=== PATIENT | female | born 1940 | race Caucasian/White ===

== ENCOUNTER 2016-07-23 19:16 | Inpatient (IN) | payer OTHER, MEDICARE ==
[~2016-07-23] VITALS: Ht 165.1 cm; Wt 79.0 kg
--- NOTE | 2016-07-23 19:30 | NUR ---
BIBA FROM HOME C/O LEFT FLANK/LOWER ABD PAIN, N/V AND DIARRHEA SINCE ABOUT NOON. SYMPTOMS STARTED AFTER EATING LUNCH. DRY HEAVING ON ARRIVAL BUT NO VOMITING, ALERT AND ORIENTED, NO SOB, NO CHEST PAIN.REMOTE HX DIVERTICULITIS, ALSO HAS HX KIDNEY STONES. REPORTS URINARY HESITANCY YESTERDAY BUT NO SYMPTOMS TODAY.
--- NOTE | 2016-07-23 19:34 | ED GI/GU/ABDOMINAL COMPLAINT ---
History of Present Illness General Chief Complaint: Abdominal Pain/Flank Pain Stated Complaint: BIBA ABD PAIN Source: patient, family, old records, EMS Exam Limitations: no limitations Vital Signs & Intake/Output Vital Signs & Intake/Output Vital Signs Date Time Temp Pulse Resp B/P B/P Pulse O2 O2 Flow FiO2 Mean Ox Delivery Rate 07/23 2245 97.4 58 18 155/70 07/235 97.4 58 18 155/70 97 Room Air 07/230 95 07/23 2128 96.4 60 20 147/65 95 Room Air 07/23 1927 97.3 67 18 182/90 97 Room Air Allergies Coded Allergies: cephalexin (From KEFLEX) (UNKNOWN 07/24/16) codeine (UNKNOWN 07/24/16) latex (UNKNOWN 07/24/16) Triage Note: BIBA FROM HOME C/O LEFT FLANK/LOWER ABD PAIN, N/V AND DIARRHEA SINCE ABOUT NOON. SYMPTOMS STARTED AFTER EATING LUNCH. DRY HEAVING ON ARRIVAL BUT NO VOMITING, ALERT AND ORIENTED, NO SOB, NO CHEST PAIN.REMOTE HX DIVERTICULITIS, ALSO HAS HX KIDNEY STONES. REPORTS URINARY HESITANCY YESTERDAY BUT NO SYMPTOMS TODAY. Triage Nurses Notes Reviewed? yes ? Y Is pt currently ? No Onset: Abrupt Duration: hour(s): (5), constant Timing: recent history Quality/Severity: moderate, sharpness Severity Numbers: 8 Location: left flank Radiation: LLQ, LUQ Activities at Onset: none Prior Abdominal Problems: none No Modifying Factors: none Associated Symptoms: diarrhea, nausea/vomiting HPI: 76-year-old female with history of kidney stones diverticulitis, arrhythmia presents complaining sudden onset 5 hours of constant left flank pain radiating to the left upper and lower quadrant. Associated with multiple episodes of nausea vomiting and diarrhea. Patient denies black or bloody stools or hematemesis. No fever no chills no urinary complaints, until arrival here when she had an episode of hematuria She is not taken anything for her symptoms no chest pain or shortness of breath. Her only abdominal surgery significant for hysterectomy no sick contacts recent travel no modifying factors or associated symptoms otherwise. (CARMEN STEPHENS,MARILYNN) Reconcile Medications Ciprofloxacin HCl (Cipro) 500 MG TABLET 1 TAB PO BID Pyelonephritis Cyanocobalamin (Vitamin B-12) (Unknown Strength) TABLET (Unknown Dose) PO DAILY SUPPLEMENT (Reported) Diltiazem HCl (Diltiazem 24HR ER) 180 MG CAP.ER.24H 1 CAP PO DAILY ARRYTHMIA (Reported) Oxycodone HCl/Acetaminophen (Percocet 5-325 MG Tablet) 5 MG-325 MG TABLET 1-2 TAB PO Q8P PRN pain Pyridoxine HCl (Vitamin B-6) (Unknown Strength) TABLET (Unknown Dose) PO DAILY SUPPLEMENT (Reported) Vit C/Vit E/Lutein/Min/Downing-3 (Ocuvite Softgel) (Unknown Strength) CAPSULE ( Unknown Dose) PO DAILY SUPPLEMENT (Reported) (MARTHA WU,KARY Davila) Past History Travel History Traveled to [place] past 21 day No Medical History Any Pertinent Medical History? see below for history Cardiovascular: ARRHYTHMIA Gastrointestinal: diverticulitis Renal: KIDNEY STONES Surgical History Surgical History: hysterectomy Psychosocial History What is your primary language Swedish Tobacco Use: Never used Family History Hx Contributory? No (MARILYNN PORRAS) Review of Systems Review of Systems Constitutional: Reports: see HPI. All Other Systems: Reviewed and Negative Comments Review of systems: See HPI, All other systems negative. Constitutional, no chills no fever, no malaise HEENT: no sore throat no congestion, no ear pain Cardiovascular: No chest pain , no palpitation , Skin: no rashes, no change in skin Respiratory: No dyspnea no cough no sputum no hemoptysis GI: nausea vomiting, diarrhea, no bloating/constipation : No dysuria No hematuria, no frequency Muscle skeletal: No joint pain, no back pain, no neck pain, Neurologic: No numbness no headache Psych: No stress no depression,. Heme/endocrine: No bruising no bleeding Immunology: No lymphadenopathy (MARILYNN PORRAS) Physical Exam Physical Exam General Appearance: well developed/nourished, no apparent distress, alert, awake Gastrointestinal: soft, tenderness Back: CVA tenderness (L) Comments: Well-developed well-nourished person in no acute distress HEENT: Normal EENT exam; PERRL, EOMI, no nystagmus. HEAD is atraumatic. moist mucous membranes. Neck: Supple, , normal range of motion without pain or tenderness Back: Nontender, left CVA tenderness. Full range of motion Cardiovascular: Regular rate and rhythms no murmurs rubs Respiratory: Chest nontender.There were no bony deformities, no asymmetry. No respiratory distress. Patient speaking in full complete sentences. Breath sounds clear to auscultation bilaterally: NO W/R/R Abdomen: Soft, left upper left lower quadrant tenderness to palpation nondistended, no appreciable organomegaly. Normal bowel sounds. No rebound/ guarding, No appreciable enlargement of the abdominal aorta, No ascites. Extremity: No edema, full range of motion of extremities Neuro: Alert oriented x3, motor sensory normal,There were no obvious focal neurologic abnormalities. Skin: No appreciable rash on exposed skin, skin is warm and dry. Psych: Mood and affect is normal, memory and judgment is normal. Core Measures ACS in differential dx? No Severe Sepsis Present: No Septic Shock Present: No (CARMEN STEPHENS,MARILYNN) Progress Differential Diagnosis: bowel obstruction, colon cancer, diverticulitis, hepatitis, ischemic bowel, inflamm bowel dis, kidney stone, pancreatitis, perforated viscous, SBO, UTI/pyelo Diagnostic Imaging: Viewed by Me: CT Scan. Discussed w/RAD: CT Scan. Radiology Impression: PATIENT: WALDO IRVIN PRESENT AGE: 76 PATIENT ACCOUNT NO: [id number] : 41 LOCATION: [facility] ORDERING PHYSICIAN: MARILYNN STEPHENS SERVICE DATE: 07/23/16 EXAM TYPE: CAT - CT ABD & PELVIS W/O IV CONTRAS EXAMINATION: CT ABDOMEN AND PELVIS WITHOUT CONTRAST CLINICAL INFORMATION: Left flank pain radiating to the left abdomen. COMPARISON: None available. TECHNIQUE: Multidetector volumetric imaging was performed from the superior aspect of the liver through the pubic symphysis. Sagittal and coronal reformatted images were obtained on the technologist's workstation. FINDINGS: There is amorphus high density retroperitoneal hematoma on the left side that is centered just anterior to the left ureteropelvic junction and proximal left ureter which are inseparable from hematoma. The left renal collecting system does appear mildly dilated. There are no radiopaque calculi along the course of the ureters. There is a 4 mm calculus within the lateral interpolar left kidney. There are parapelvic cysts on the right side. There is left perinephric stranding. Mild scarring versus atelectasis at the medial right lung base. Diffuse hepatic steatosis. Limited evaluation of the unenhanced spleen, adrenal glands, gallbladder, and pancreas reveals no definite abnormality. The large and small bowel are normal in caliber without evidence of mechanical obstruction. No focal inflammatory changes adjacent to the large or the small bowel. Sigmoid diverticulosis without evidence of acute diverticulitis. There is no free air and there is no intra-abdominal free fluid. No mesenteric or retroperitoneal adenopathy. Uterus is surgically absent. No pelvic adenopathy. There are no acute osseous abnormalities. Grade 1 degenerative anterolisthesis of L4 on L5 in the setting of severe facet arthropathy at this level. No significant soft tissue abnormality. IMPRESSION: - There is retroperitoneal hematoma on the left side that is centered just anterior to the left ureteropelvic junction and proximal left ureter which are inseparable from hematoma. In speaking with the referring clinician, the patient does have an elevated white count and left flank pain. Possible etiology for these blood products could be ureteral injury or calyceal rupture in the setting of prior obstruction with no radiopaque calculus identified as the source of obstruction on this exam. Alternatively ureteral or calyceal injury from underlying pyelonephritis could explain these findings. If renal function tests allow, a CT urogram excluding the noncontrast portion and CTA of the abdomen would be helpful in assessing the renal collecting system more definitively and for ensuring that there is no renal artery aneurysm to explain these findings. - There is mild dilatation of the left renal collecting system and there is a 4 mm calculus within the lateral interpolar left kidney. There are parapelvic cysts on the right side. - Diffuse hepatic steatosis. Findings discussed with Dr. Barnard at 8:39 PM on 07/23/2016. DICTATED BY: ERIN REHMAN MD DATE/TIME DICTATED:07/23/162026 SORTING COWS WORKER:JUDITH DATE/TIME TRANSCRIBED:2026 CONFIDENTIAL, DO NOT COPY WITHOUT APPROPRIATE AUTHORIZATION. < Electronically signed in Other Vendor System> SIGNED BY: ERIN REHMAN MD 07/23/162047 Initial ED EKG: VENTRICULAR QUADRIGEMINY AT 80, NO ACUTE ST SEG CHANGES, NORMAL AXIS Prior EKG: changed (04/2001) Hand-Off Endorsed To: MARTHA WU,KARY Davila Endorsed Time: 810 Pending: other (accepting physician) (MARILYNN PORRAS) Plan of Care: Orders Procedure Date/time Status KIDNEY STONE ANALYSIS Ref$ 07/28 1513 Active Labs ordered patient making a Toradol 15 IV IV fluids Zofran IV case discussed with Dr. Wiseman 07/23/2016 8:44:16 PM discussed with the patient plan of care need for CAT scan with contrast and discussed with her all of her lab results she is feeling improved denies any pain or nausea at this time. Resting comfortably, patient is hemodynamically stable 07/23/2016 9:59:40 PM patient denies pain pending CAT scan 07/23/2016 10:22:01 PM case discussed with Dr. Thompson advised to Flomax antibiotics admit to medicine she will consult in the morning however does not feel the patient requires any type of urology surgical intervention at this time Discussed with patient plan of care. case d/w dr martinez and dr schmidt- signed out to him pending accepting physician (MARILYNN PORRSA) Departure Departure Time of Disposition: 2256 Disposition: STILL A PATIENT Condition: Stable Clinical Impression Primary Impression: Retroperitoneal hematoma Secondary Impressions: Kidney stone, Left ureteral injury, Pyelonephritis Referrals: SHAHLA PERLA,SHENA Gallego (PCP/Family) Departure Forms: Customer Survey General Discharge Information Prescriptions: Current Visit Scripts Ciprofloxacin HCl (Cipro) 1 TAB PO BID 10 Days Admission Note Documentation of Exam: Documentation of any treatments & extenuating circumstances including Concerns Regarding Discharge (functional status, medication knowledge or non-compliance, living conditions, etc.) that warrant an admission rather than observation: TREND LABS, IV FLUIDS, IV ABX, FLOMAX, UROLOGY CONSULT PREMATURE DISCHARGE WOULD BE MEDICALLY HARMFUL (MARILYNN PORRAS) Admission Note Spoke With: SINA MARTINEZ MD Documentation of Exam: Documentation of any treatments & extenuating circumstances including Concerns Regarding Discharge (functional status, medication knowledge or non-compliance, living conditions, etc.) that warrant an admission rather than observation: PA/ONION TOPPER Co-Sign Statement Statement: ED Attending supervision documentation- [X] I saw and evaluated the patient. I have also reviewed all the pertinent lab results and diagnostic results. I agree with the findings and the plan of care as documented in the PA's/ONION TOPPER's documentation. [X] I have reviewed the ED Record and agree with the PA's/ONION TOPPER's documentation. [] Additions or exceptions (if any) to the PAs/ONION TOPPER's note and plan are summarized below: [] (MARTHA WU,KARY Davila) PA/ONION TOPPER Co-Sign Statement Statement: ED Attending supervision documentation- [] I saw and evaluated the patient. I have also reviewed all the pertinent lab results and diagnostic results. I agree with the findings and the plan of care as documented in the PA's/ONION TOPPER's documentation. [] I have reviewed the ED Record and agree with the PA's/ONION TOPPER's documentation. [] Additions or exceptions (if any) to the PAs/ONION TOPPER's note and plan are summarized below: [] (LUCY WU,JOHN PAUL) Primary Impression: Retroperitoneal hematoma Secondary Impressions: Kidney stone, Left ureteral injury, Pyelonephritis Referrals: [facility],SHENA Gallego (PCP/Family) Departure Forms: Customer Survey General Discharge Information Admission Note Documentation of Exam: Documentation of any treatments & extenuating circumstances including Concerns Regarding Discharge (functional status, medication knowledge or non-compliance, living conditions, etc.) that warrant an admission rather than observation: TREND LABS, IV FLUIDS, IV ABX, FLOMAX, UROLOGY CONSULT PREMATURE DISCHARGE WOULD BE MEDICALLY HARMFUL (MARILYNN PORRAS) Admission Note Spoke With: SINA MARTINEZ MD Documentation of Exam: Documentation of any treatments & extenuating circumstances including Concerns Regarding Discharge (functional status, medication knowledge or non-compliance, living conditions, etc.) that warrant an admission rather than observation: PA/ONION TOPPER Co-Sign Statement Statement: ED Attending supervision documentation- [X] I saw and evaluated the patient. I have also reviewed all the pertinent lab results and diagnostic results. I agree with the findings and the plan of care as documented in the PA's/ONION TOPPER's documentation. [X] I have reviewed the ED Record and agree with the PA's/ONION TOPPER's documentation. [] Additions or exceptions (if any) to the PAs/ONION TOPPER's note and plan are summarized below: [] (MARTHA WU,KARY Davila) PA/ONION TOPPER Co-Sign Statement Statement: ED Attending supervision documentation- [] I saw and evaluated the patient. I have also reviewed all the pertinent lab results and diagnostic results. I agree with the findings and the plan of care as documented in the PA's/ONION TOPPER's documentation. [] I have reviewed the ED Record and agree with the PA's/ONION TOPPER's documentation. [] Additions or exceptions (if any) to the PAs/ONION TOPPER's note and plan are summarized below: [] (LUCY WU,JOHN PAUL)
--- NOTE | 2016-07-23 19:54 | NUR ---
PT SEEN BY PA NICHELLE ON ARRIVAL AND BY ANGELO MORALES. IV PLACED AND PT MEDICATED PER MAY. PT AMBULATORY TO BATHROOM, RETURNED WITH URINE SAMPLE WHICH WAS FRANKLY BLOODY. URINE TRIO AND BLOOD (SST/LAV/BLUE/RAMIRES/PINK) SENT AND PT TO CT AT THIS TIME.
[2016-07-23] MEDS ORDERED: DILTIAZEM 24HR180 MG PO (19:55)
[2016-07-23 20:13] LABS: ABSOLUTE BASOPHIL COUNT 0 /CUMM (0.0-0.2); ABSOLUTE EOSINOPHIL COUNT 0 /CUMM (0.0-0.7); ABSOLUTE GRANULOCYTE CT 17.6 /CUMM (1.4-6.5); ABSOLUTE LYMPH COUNT 1.4 /CUMM (1.2-3.4); ABSOLUTE MONOCYTE COUNT 0.9 /CUMM (0.10-0.60); BASOPHIL % 0.2 % (0.0-2.0); EOSINOPHIL % 0 % (0-5); HEMATOCRIT 44.1 % (37-47); MEAN CORPUSCULAR HGB 30.7 PG (27.0-31.0); MEAN CORPUSCULAR HGB CONC 33.3 G/DL (33.0-37.0); MEAN CORPUSCULAR VOLUME 92.2 FL (81.0-99.0); MEAN PLATELET VOLUME 10.9 FL (7.4-10.4); PLATELET COUNT 269 /CUMM (130-400); RBC DISTRIBUTION WIDTH 13.5 % (11.5-14.5); RED BLOOD CELL CT 4.78 /CUMM (4.20-5.40)
[2016-07-23 20:14] LABS: GRANULOCYTE % 87.9 % (42.2-75.2)
--- NOTE | 2016-07-23 20:48 | CT SCAN REPORT ---
EXAMINATION: CT ABDOMEN AND PELVIS WITHOUT CONTRAST CLINICAL INFORMATION: Left flank pain radiating to the left abdomen. COMPARISON: None available. TECHNIQUE: Multidetector volumetric imaging was performed from the superior aspect of the liver through the pubic symphysis. Sagittal and coronal reformatted images were obtained on the technologist's workstation. FINDINGS: There is amorphus high density retroperitoneal hematoma on the left side that is centered just anterior to the left ureteropelvic junction and proximal left ureter which are inseparable from hematoma. The left renal collecting system does appear mildly dilated. There are no radiopaque calculi along the course of the ureters. There is a 4 mm calculus within the lateral interpolar left kidney. There are parapelvic cysts on the right side. There is left perinephric stranding. Mild scarring versus atelectasis at the medial right lung base. Diffuse hepatic steatosis. Limited evaluation of the unenhanced spleen, adrenal glands, gallbladder, and pancreas reveals no definite abnormality. The large and small bowel are normal in caliber without evidence of mechanical obstruction. No focal inflammatory changes adjacent to the large or the small bowel. Sigmoid diverticulosis without evidence of acute diverticulitis. There is no free air and there is no intra-abdominal free fluid. No mesenteric or retroperitoneal adenopathy. Uterus is surgically absent. No pelvic adenopathy. There are no acute osseous abnormalities. Grade 1 degenerative anterolisthesis of L4 on L5 in the setting of severe facet arthropathy at this level. No significant soft tissue abnormality. IMPRESSION: - There is retroperitoneal hematoma on the left side that is centered just anterior to the left ureteropelvic junction and proximal left ureter which are inseparable from hematoma. In speaking with the referring clinician, the patient does have an elevated white count and left flank pain. Possible etiology for these blood products could be ureteral injury or calyceal rupture in the setting of prior obstruction with no radiopaque calculus identified as the source of obstruction on this exam. Alternatively ureteral or calyceal injury from underlying pyelonephritis could explain these findings. If renal function tests allow, a CT urogram excluding the noncontrast portion and CTA of the abdomen would be helpful in assessing the renal collecting system more definitively and for ensuring that there is no renal artery aneurysm to explain these findings. - There is mild dilatation of the left renal collecting system and there is a 4 mm calculus within the lateral interpolar left kidney. There are parapelvic cysts on the right side. - Diffuse hepatic steatosis. Findings discussed with Dr. Barnard at 8:39 PM on 07/23/2016.
--- NOTE | 2016-07-23 21:09 | NUR ---
PT TO AND FROM CT TWICE. FEELING BETTER AFTER MEDS, THEN C/O WAVE OF PAIN WHEN RETURNING FROM CT. AMBULATED TO BATHROOM AND FELT SOMEWHAT BETTER UPON RETURN. AWAITING RESULTS OF CTA
--- NOTE | 2016-07-23 21:29 | NUR ---
PAIN HAS RESOLVED, PT SITTING ON STRETCHER TALKING WITH FRIEND. AWAITING RESULTS OF CTA.
[2016-07-23] MEDS ORDERED: VITAMIN B-650 M2 PO (21:30)
[2016-07-23] MEDS ORDERED: OCUVITE SOFTGE1 EACH PO (21:30)
[2016-07-23] MEDS ORDERED: VITAMIN B-121000 MC3 PO (21:30)
--- NOTE | 2016-07-23 22:11 | CT SCAN REPORT ---
EXAMINATION: CT ANGIOGRAM ABDOMEN AND PELVIS CLINICAL INFORMATION: Abdominal pain. Small volume retroperitoneal hematoma. COMPARISON: CT abdomen and pelvis without contrast 07/23/2016. TECHNIQUE: Multiple axial images were obtained through the abdomen and pelvis following the administration of 95 mL of Optiray 350 intravenous contrast. 2-D coronal and sagittal reformatted images of the abdomen and pelvis were obtained at the acquisition workstation. DLP: 677 mGy-cm FINDINGS: LUNG BASES: Bibasilar subsegmental atelectasis. No pleural or pericardial effusions. No visible basilar pulmonary emboli. LIVER, GALLBLADDER, AND BILIARY TREE: Evaluation of the hepatobiliary tree demonstrates diffuse low-attenuation of the liver parenchyma, indicative of diffuse hepatic steatosis. The liver is otherwise normal in size and shape and is visualized measuring approximately 16 cm in length. No hypervascular hepatic lesions are identified. There is no intrahepatic biliary ductal dilatation. The gallbladder is contracted, without evidence of radiopaque gallstones, gallbladder wall thickening, or obvious pericholecystic inflammatory changes. PANCREAS: Unremarkable. SPLEEN: Unremarkable. ADRENAL GLANDS: Unremarkable. KIDNEYS AND URETERS: Evaluation of the bilateral kidneys and renal collecting systems is again notable for a small volume of retroperitoneal hematoma within the left renal fossa, with blood products visualized along the course of the proximal left ureter. Retroperitoneal hematoma within this region is likely secondary to underlying ureteral injury from a passed 4 mm stone, which is visualized at the left ureterovesicular junction. There is hypoenhancement of the left kidney relative to the right kidney. Also noted is mild prominence of the left renal collecting system, which may reflect mild hydronephrosis of the left kidney. Redemonstrated is a 4 mm nonobstructing stone within the mid to lower pole of the left kidney. A minimal amount of perinephric fluid is visualized surrounding the left kidney. The right kidney appears unremarkable. There are multiple right-sided parapelvic cysts. There is no appreciable hydronephrosis of the right kidney. BLADDER: As noted above, there is a 4 mm passed stone at the left ureterovesicular junction. GASTROINTESTINAL TRACT: Normal anatomic orientation of the stomach relative to the duodenum. Normal caliber of abdominal and pelvic bowel loops, without evidence of obstruction or ileus. No circumferential bowel wall thickening with surrounding inflammatory changes to suggest an underlying infectious or inflammatory enterocolitis. Nonvisualization of the appendix. No acute inflammatory changes within the right lower quadrant of the abdomen. Scattered colonic diverticulosis, notably involving the sigmoid colon, without secondary signs of acute diverticulitis. No organizing intra-abdominal fluid collections or free intraperitoneal air. ABDOMINAL WALL: No significant hernia is appreciated. LYMPH NODES: No significant abdominal or pelvic adenopathy. VASCULAR: The abdominal aorta and its branching vessels, specifically the celiac artery, superior mesenteric artery, bilateral renal arteries and inferior mesenteric artery as well as the bilateral common iliac arteries are patent and opacified by intravenous contrast, without aneurysmal dilatation. There are no centrally displaced intraluminal flaps within these vessels to suggest dissection. There are no visible aneurysms arising from the left renal artery. The imaged abdominal veins appear to be opacified by contrast. Specifically, there is contrast opacification of the hepatic veins as well as the main portal vein and SMV, although evaluation for patency of these vessels is limited given phase of contrast imaging. Incidental note is made of a circumaortic left renal vein. PELVIC VISCERA: Status post hysterectomy. No adnexal masses. OSSEOUS STRUCTURES: No acute osseous abnormality. Mild multilevel degenerative changes of the lumbar spine and moderate multilevel facet arthrosis of the lumbar spine. No visible destructive osseous lesions. IMPRESSION: 1. Small volume retroperitoneal hematoma along the course of the proximal left ureter. This is favored to be secondary to an underlying left ureteral injury given the presence of a 4 mm stone at the left ureterovesicular junction. Hematoma along the proximal left ureter measures approximately 2.2 x 2.8 x 3.0 cm in AP, transverse and craniocaudal dimensions respectively. There is minimal left-sided perinephric stranding. 2. Mild prominence of the left renal collecting system, indicative of mild hydronephrosis of the left kidney. There is hypoenhancement of the left kidney relative to the right kidney. This finding is nonspecific but may be secondary to underlying obstruction of the left kidney. 3. No aneurysmal dilatation of the abdominal aorta or its branching vessels, including the left renal artery. 4. Hepatic steatosis. This critical result was discussed with Dr. Eh Barnard at 10:05 PM on 07/23/2016 and it was ascertained that the content and urgency of the report was understood at the time of direct communication.
--- NOTE | 2016-07-23 22:25 | NUR ---
IVF INFUSING. PHARMACY CALLED FOR FLOMAX AND SO, PHARMACIST UNAVAILABLE.
--- NOTE | 2016-07-23 22:58 | NUR ---
2ND LITER IVF UP, CIPRO INFUSING. PT AMBULATORY BACK AND FORTH FROM BATHROOM AD JOHNNIE, NO PAIN AT THIS TIME. VSS. AWAITING ADMISSION AT THIS TIME.
--- NOTE | 2016-07-23 23:37 | NUR ---
PT MOVED TO ROOM 8 AND REPORT GIVEN TO BO JESSICA. PT REPORTED SUDDEN RETURN OF PAIN, UP TO BATHROOM TO VOID AND BACK WITHOUT IMPROVEMENT. DR THOMAS INFORMED, MEDICATED WITH TORADOL PER EMAR. 3RD LITER INFUSING ALONG WITH CIPRO. REPEAT LACTIC SENT. AWAITING ADMISSION.
--- NOTE | 2016-07-24 | NUR ---
HOUSE STAFF HERE AWAITING ADMIT BED.
--- NOTE | 2016-07-24 00:27 | NUR ---
BED ASSIGNMENT 180-1
--- NOTE | 2016-07-24 01:02 | NUR ---
REPORT CALLED TO NEO SORIANO
--- NOTE | 2016-07-24 01:05 | NUR ---
ADMIT ORDER CHANGED TO ICU. AWAITING BED ASSIGNMENT
--- NOTE | 2016-07-24 01:47 | NUR ---
BED ASSINMENT 111
--- NOTE | 2016-07-24 01:56 | History & Physical ---
SALUD WU,[facility] 07/24/16 0155: General Information and HPI MD Statement: I have seen and personally examined WALDO IRVIN and documented this H&P. The patient is a 76 year old F who presented with a patient stated chief complaint of [left flank pain for 1 day]. Source of Information: patient Exam Limitations: no limitations History of Present Illness: Ms. Irvin is a 76 year old female with chief complaint of left flank pain for 1 day. Patient has past medical history significant for arrhythmia, diverticulosis, kidney stone. Patient reported that around afternoon yesterday, she started to have nausea and vomiting 6 episodes, food containing vomit but no blood, episodes of loose stool and then had sudden onset of "bad pain of left abdomen" pain was severe 9/10 constant and progressively worsen, radiates to the suprapubic area. Patient denied any fever, chills, change in the urine color, dysuria at that time. Patient reported that one day before the onset of this pain she was complaining of "pressure on the bladder" hesitancy and increased frequency, weak stream. Patient called 911 and upon presentation to ED she started to have hematuria of dark red urine that started to light up. Patient has history of kidney stone 15 years ago, no urology procedure was done at that time. Patient denied any chest pain, palpitation, shortness of breath, dizziness, loss of consciousness, decreased oral intake, lower extremity swelling. Allergies/Medications Allergies: Coded Allergies: cephalexin (From KEFLEX) (UNKNOWN 07/24/16) codeine (UNKNOWN 07/24/16) latex (UNKNOWN 07/24/16) Uncoded Allergies: Allergy Other LATEX,EGGS,TOMATO,ORANGES Med Allergies CODEINE,SULFA,CEPHALEXIN, Home Med list Cyanocobalamin (Vitamin B-12) (Unknown Strength) TABLET (Unknown Dose) PO DAILY SUPPLEMENT (Reported) Diltiazem HCl (Diltiazem 24HR ER) 180 MG CAP.ER.24H 1 CAP PO DAILY ARRYTHMIA (Reported) Pyridoxine HCl (Vitamin B-6) (Unknown Strength) TABLET (Unknown Dose) PO DAILY SUPPLEMENT (Reported) Vit C/Vit E/Lutein/Min/Helton-3 (Ocuvite Softgel) (Unknown Strength) CAPSULE ( Unknown Dose) PO DAILY SUPPLEMENT (Reported) Past History Travel History Traveled to [place] past 21 day No Medical History Cardiovascular: ARRHYTHMIA Gastrointestinal: diverticulitis Renal: KIDNEY STONES Surgical History Surgical History: hysterectomy Past Family/Social History Psychosocial History Who Do You Live With? sister Primary Language: Palauan Smoking Status: Never Smoked ETOH Use: occasional use Illicit Drug Use: denies illicit drug use Living Will? yes Functional Ability ADLs Independent: dressing, eating, toileting, bathing. Ambulation: independent IADLs Independent: shopping, housework, finances, food prep, telephone, transportation , medication admin. Review of Systems Review of Systems Constitutional: Reports: see HPI. Exam & Diagnostic Data Last 24 Hrs of Vital Signs/I&O Vital Signs Date Time Temp Pulse Resp B/P B/P Pulse O2 O2 Flow FiO2 Mean Ox Delivery Rate 07/24 0245 99 Room Air 07/24 0245 98.2 76 20 148/60 96 Room Air 07/24 0211 72 16 135/63 96 Room Air 07/23 2246 97.4 58 18 155/70 05/ 2245 97.4 58 18 155/70 97 Room Air 07/23 2130 95 05/ 2129 96.4 60 20 147/65 95 Room Air 07/23 1927 97.3 67 18 182/90 97 Room Air Intake & Output 07/24 0800 05/04 0000 05/03 1600 Intake Total 3000 100 Output Total 300 Balance 3000 -200 Intake, IV 3000 100 Output, Urine 300 Patient 79.01 kg 77.111 kg Weight Weight Bed scale Reported by Patient Measurement Method Physical Exam General Appearance Alert, Oriented X3, Cooperative, No Acute Distress Skin No Rashes, No Breakdown, No Significant Lesion Skin Temp/Moisture Exam: Warm/Dry HEENT Atraumatic, PERRLA, EOMI, Mucous Membr. moist/pink Neck Supple, No JVD Lymphatic no cervical lymphadenopathy Cardiovascular Normal S1, Normal S2, No Murmurs, irrigular Lungs Clear to Auscultation, Normal Air Movement Abdomen Normal Bowel Sounds, Soft, left lumber tenderness and left flank tenderness Neurological Normal Gait, Normal Speech, Strength at 5/5 X4 Ext, Normal Tone, Sensation Intact, Cranial Nerves 3-12 NL, Reflexes 2+ Extremities No Clubbing, No Cyanosis, No Edema, Normal Pulses, No Tenderness/ Swelling Assessment/Plan Assessment: Ms. Irvin is a 76 year old female with chief complaint of sudden onset of left flank pain for 1 day associated with nausea, vomiting, hematuria. Patient has past medical history significant for arrhythmia, diverticulosis, kidney stone. On admission Vital signs temperature 97.3, pulse 67, blood pressure 182/90, respiratory rate 18 with saturation 97% room air Labs WBC 20, H&H 14.7/44.1, platelet 269, sodium 140, potassium 4.1, BUN/ creatinine 18/1, chloride 102, bicarbonate 26, GFR 54, lactic acid 1.4, AST 44, ALT 64, alkaline phosphatase within normal, trops<0.01, lipase & amylase WNL, UA positive nitrate, back RBC and hemoglobin. Image #CT abdomen and pelvis IMPRESSION: - There is retroperitoneal hematoma on the left side that is centered just anterior to the left ureteropelvic junction and proximal left ureter which are inseparable from hematoma. In speaking with the referring clinician, the patient does have an elevated white count and left flank pain. Possible etiology for these blood products could be ureteral injury or calyceal rupture in the setting of prior obstruction with no radiopaque calculus identified as the source of obstruction on this exam. Alternatively ureteral or calyceal injury from underlying pyelonephritis could explain these findings. If renal function tests allow, a CT urogram excluding the noncontrast portion and CTA of the abdomen would be helpful in assessing the renal collecting system more definitively and for ensuring that there is no renal artery aneurysm to explain these findings. - There is mild dilatation of the left renal collecting system and there is a 4 mm calculus within the lateral interpolar left kidney. There are parapelvic cysts on the right side. - Diffuse hepatic steatosis. CTA abdomen pelvis IMPRESSION: 1. Small volume retroperitoneal hematoma along the course of the proximal left ureter. This is favored to be secondary to an underlying left ureteral injury given the presence of a 4 mm stone at the left ureterovesicular junction. Hematoma along the proximal left ureter measures approximately 2.2 x 2.8 x 3.0 cm in AP, transverse and craniocaudal dimensions respectively. There is minimal left-sided perinephric stranding. 2. Mild prominence of the left renal collecting system, indicative of mild hydronephrosis of the left kidney. There is hypoenhancement of the left kidney relative to the right kidney. This finding is nonspecific but may be secondary to underlying obstruction of the left kidney. 3. No aneurysmal dilatation of the abdominal aorta or its branching vessels, including the left renal artery. 4. Hepatic steatosis. Problem list #Obstructive stone of left ureter (4 mm stone at the left ureterovesicular junction) #Small volume retroperitoneal hematoma along the course of the proximal left ureter #UTI positive UA with leukocytosis #Arrhythmia #Hepatic steatosis with mildly elevated AST and ALT Plan -Admit to ICU for close monitoring -Urology consultation in a.m. -Optimal pain management Patient has allergy from codeine "turns to blue", will manage with acetaminophen tab 650 every 6h for mild pain, acetaminophen IV every 6 for moderate pain, Toradol 15 mg every 6 for severe pain. Patient has CTA finding of hematoma versus urinoma. We will be very cautious with using tramadol since it increases risk of bleeding. I contacted the pharmacy and reviewed pain medication options. Suggestion to have dilaudid trial in a.m. -Continue ciprofloxacin 400 mg every 12 -Obtain urine culture, blood culture -Continue Cardizem 180 mg daily -Add magnesium to the lab -Continue IV fluid hydration 75 mL/h normal saline -Monitor blood pressure, was initially elevated mostly because of severe pain -Code full -DVT prophylaxis Alps -Diet nothing by mouth for possible urology procedure As Ranked By This Provider Problem List: 1. Left ureteral injury 2. Retroperitoneal hematoma 3. Kidney stone 4. Hydronephrosis Core Measures/Miscellaneous Acute Coronary Syndrome ACS Diagnosis: No Cerebrovascular Accident CVA/TIA Diagnosis: No Congestive Heart Failure CHF Diagnosis: No Venous Thromboembolism VTE Risk Factors: Age > 40 No Mech VTE prophylaxis d/t: No contraindications No VTE Pharm Prophylaxis d/t: Active bleeding VTE Diagnosis: No VTE Type: NONE VTE Confirmed by (Test): NONE Severe Sepsis Severe Sepsis Present: No Septic Shock Septic Shock Present: No Miscellaneous Documentation Attending Case Discussed With: SINA COYLE MD Primary Care Physician: SHENA URIBE Patient sees these Specialists Cardiology Dr. Fierro Level of Patient Care: Critical Care (CRI) ADRIANNA PALUMBO 07/24/16 0209: Resident Review Statement Resident Statement: examined this patient, discussed with internet marketing assistant, agreed with internet marketing assistant Other Findings: is a 76 yo women with PMHx of borderline hypertension, erratic heart rhythm on Diltiazem, hysterectomy, Lt. kidney stone around 15 years ago managed medically presented to ED with a c/o of Lt back/ flank pain. Patient was in her usual health until yesterday when she started to develop bladder pressure feeling that was associated with urinary freqeuncy, today when she woke up at am she was fine, attended her classes, after she ate her lunch she started feels nauseous, she vomited about 6 times, she wasn't able to drive to ED so, she called 911. At ED patient started to feels chills, no fever reported. pain was in the left back, flank and LLQ, 9/10 in severity, constant pain, associated with hematuria, she didn't noticed any stone passing. Patient report loose stool started today. She denies chest pain, SOB, dizziness, heart racing. Vitals, examination, labs and imaging as above Assessment: #Lt. back/ Flank pain 2/2 kidney stone #Small volume retroperitoneal hematoma along the course of the proximal left ureter. #Hematuria 2/2 passing stone, now her urine becomes bright pink #Hx. of erratic rhythm, last Echo was last year which was unremarkable #Hx. of borderline BP Plan: Will admitt to Critical care unit Urology consult at am Closely monitor vitals Monitor for any sign of hemodynamic instability, if hemodynamically stable stat urological eval. Critical care consult at am She received one dose of Ciprofloxacin at ED , will continue Blood Cx and Urine Cx. was sent will F/U Will hydrate with IV NS CBC, BEP at am Pain management DVTppx: ALPS Full code SINA COYLE 07/24/16 0311: Attending MD Review Statement Attending Statement Attending MD Statement: examined this patient, discuss w/resident/PA/SELF PAY REPRESENTATIVE, agreed w/resident/PA/SELF PAY REPRESENTATIVE, reviewed EMR data (avail), reviewed images, amended to note Attending Assessment/Plan: CC: Severe flank pain, lower abdominal pain, nausea vomiting PMH: HTN, this arrhythmia, S/P hysterectomy and history of kidney stone 15 years back She came to ER for severe left flank pain radiating to abdomen and groin associated with multiple nausea and vomiting episodes. Only unusual thing she remembers that yesterday she had severe bladder pressure while urinating, and she had urinary frequency whole night. Earlier part of the day patient was fine. Nausea vomiting episodes were also associated with diarrhea. The pain was so severe that she had to call 911 [address] After coming to ER she had bloody urine. Vitals: Afebrile, HR, RR, blood pressure, O2 saturation in acceptable range On exam: A O 3, cooperative, no acute distress, anxious neck supple, JVD normal , no lymphadenopathy, mucosa dry no focal neurological deficit, no dependent edema, no obvious skin rashes or inflammation CVS: S1-S2, irregular RS: Clear to auscultate bilaterally. Abdomen: Soft, tender left lower quadrant and left CVA ND, bowel sounds present. Peripheral pulses perfusion normal Labs: WBC 20.0 neutrophils 87% , band 9, BUN 18, glucose 161, lactate 1.4, AST 44, ALT 64, troponin less than 0.01 UA: Bloody, turbid, nitrite positive, ketone positive, leukocyte esterase positive, RBC packed, WBC 15-25 CT abdomen and pelvis followed by CTA abdomen pelvis with contrast shows - There is retroperitoneal hematoma on the left side that is centered just anterior to the left ureteropelvic junction and proximal left ureter which are inseparable from hematoma. In speaking with the referring clinician, the patient does have an elevated white count and left flank pain. Possible etiology for these blood products could be ureteral injury or calyceal rupture in the setting of prior obstruction with no radiopaque calculus identified as the source of obstruction on this exam. Alternatively ureteral or calyceal injury from underlying pyelonephritis could explain these findings. If renal function tests allow, a CT urogram excluding the noncontrast portion and CTA of the abdomen would be helpful in assessing the renal collecting system more definitively and for ensuring that there is no renal artery aneurysm to explain these findings. - There is mild dilatation of the left renal collecting system and there is a 4 mm calculus within the lateral interpolar left kidney. There are parapelvic cysts on the right side. - Diffuse hepatic steatosis. Initia read of CTA 1. Small volume retroperitoneal hematoma along the course of the proximal left ureter. This is favored to be secondary to an underlying left ureteral injury given the presence of a 4 mm stone at the left ureterovesicular junction. Hematoma along the proximal left ureter measures approximately 2.2 x 2.8 x 3.0 cm in AP, transverse and craniocaudal dimensions respectively. There is minimal left-sided perinephric stranding. 2. Mild prominence of the left renal collecting system, indicative of mild hydronephrosis of the left kidney. There is hypoenhancement of the left kidney relative to the right kidney. This finding is nonspecific but may be secondary to underlying obstruction of the left kidney. 3. No aneurysmal dilatation of the abdominal aorta or its branching vessels, including the left renal artery. 4. Hepatic steatosis. Addendum for CTA Minimal to moderate left perinephric stranding with fluid also visualized surrounding the proximal left ureter. On the prior noncontrast CT of the abdomen this fluid was higher in density than expected for simple fluid and was suspicious for minimal retroperitoneal hematoma. On the CTA, fluid and stranding surrounding the proximal left ureter measures up to 45 Hounsfield units and was suspicious for blood products. Given the presence of a stone within the distal left ureter, at the left ureterovesicular junction, findings within the left hemiabdomen are most likely printing sales representative of urinoma secondary to a possible underlying forniceal rupture. There is mild hydronephrosis of the left kidney. A and P Sudden onset severe left flank pain radiating to left abdomen and groin, associated with nausea vomiting and watery stools. This episode was preceded by dysuria and frequency of urination. Initially CT abdomen without contrast was obtained which showed possible retroperitoneal hematoma, along with renal calculi, hydronephrosis and perinephric standing. Repeat CTA was suggested to rule out any renal artery aneurysms. CTA findings show either hematoma or urinoma, stone, hydronephrosis, and perinephric stranding. Patient has leukocytosis, evidence of UTI on UA, currently hemodynamically stable. Because left retroperitoneal fluid collection is unclear at this time hematoma versus urinoma. In either situation patient has hydronephrosis and evidence of UTI with pyelonephritis. In this situation, I think, patient should be washed in ICU for vitals, hemodynamic instability, covering for antibiotics and IV hydration. Urologist was informed from ER who plans to see patient in morning. I discussed this situation with Dr. Bass and Dr. Monroy. They agree for overnight ICU admission. Dr. Monroy suggested to call urologist urgently if patient gets unstable : Fever spike or hypotension or worsening of pain. #Left Retroperitoneal fluid collection : Hematoma versus urinoma # Left Pyelonephritis # Left hydronephrosis # History of dysrhythmia and hypertension - Admit to ICU - Hourly vitals monitoring - Watch for hypotension, worsening pain or fever - Follow blood culture, urine culture - Gentle hydration 75 mL per hour normal saline - Strict I's and O's - Follow urology recommendation, official urology consult - Call urologist if patient worsens as mentioned above - Continue Cipro - Critical care consult in a.m. - Adequate pain control - Resume her home medications tomorrow if patient medically stable - DVT prophylaxis Alps only with the risk of bleeding
[2016-07-24 02:45] VITALS: BP 148/60
--- NOTE | 2016-07-24 03:13 | Admission Certification ---
Admission Certification Certification Statement - As attending physician, I certify that at the time of - admission, based on clinical presentation, severity of - symptoms, need for further diagnostic testing and - therapeutic interventions, and risk of adverse outcomes - without in-hospital treatment, in my clinical assessment, - this patient requires an acute hospital stay for a minimum - of two nights or longer. I have also considered psychsocial - factors such as support system, advanced age, financial - issues, cognitive issues, and failed out-patient treatments, - past re-admission history, safety of patient, and lack of - compliance as applicable. Specific rationale supporting this admission is: Left retroperitoneal hematoma, pyelonephritis, hydronephrosis, ureteric calculus
[2016-07-24 06:07] LABS: ABSOLUTE BASOPHIL COUNT 0 /CUMM (0.0-0.2); ABSOLUTE EOSINOPHIL COUNT 0 /CUMM (0.0-0.7); ABSOLUTE GRANULOCYTE CT 9.5 /CUMM (1.4-6.5); ABSOLUTE LYMPH COUNT 2.3 /CUMM (1.2-3.4); ABSOLUTE MONOCYTE COUNT 1.2 /CUMM (0.10-0.60); BASOPHIL % 0.3 % (0.0-2.0); EOSINOPHIL % 0.1 % (0-5); GRANULOCYTE % 72.9 % (42.2-75.2); MEAN CORPUSCULAR HGB 30.6 PG (27.0-31.0); MEAN CORPUSCULAR HGB CONC 33.2 G/DL (33.0-37.0); MEAN CORPUSCULAR VOLUME 92.3 FL (81.0-99.0); MEAN PLATELET VOLUME 10.4 FL (7.4-10.4); PLATELET COUNT 208 /CUMM (130-400); RBC DISTRIBUTION WIDTH 13.6 % (11.5-14.5)
--- NOTE | 2016-07-24 06:46 | NUR ---
@0245 PT ARRIVED TO FLOOR AWAKE AND ORIENTED, PT AMBULATED TO TOILET WITHOUT DIFFICULTY, PINK TINGED URINE NOTED. HR ON MONITOR SR WITH MULTIPLE PVC'S RATE 70'S BP 148/60 MANUALLY, PT ON ROOM AIR NO DISTRESS. PT C/O OF NO PAIN AT THIS TIME, BUT WHEN PAIN DOES COME STARTS IN LEFT FLANK AND WRAPS AROUND TO LEFT ABDOMEN. ABDOMEN SOFT NONTENDER. IVF INFUSING VIA #20 LAC. ADMISSION INTEVIEW DONE, POC REVIEWED WITH PATIENT, PATIENT VERBALIZED UNDERSTANDING.
--- NOTE | 2016-07-24 07:14 | Cons- CRCU ---
EL WU,[facility] 07/24/16 0713: General Information and HPI Consulting Request Date of Consult: 07/24/16 Requested By: Dr. Carlton History of Present Illness: Patient is a 76 year-old lady with PMH of arrhythmia (not specified, sees Dr. Christina), diverticulitis, kidney stones (15 years ago), who was BIBA last night due to severe left sided flank pain radiating to the groin, constant, 8/10, sharp in nature accompanied by nausea/vomiting, urinary frequency and feeling pressure on the bladder. Her symptoms started yesterday after she had lunch. Patient also started to notice blood clots in the urine followed by pinkish urine while she was in the ED. Patient also has been complaining of chills but denies fever. She reported having loose stools overnight night but denies any further episodes today. Denied any blood in the stool, denied recent travels and antibiotic use. Also denied any SOB, dizziness, palpitation, chest pain. In the ED she was afebrile, BP 182/90 which came down to 147/65 within 2 hours ( she received ketorolac and IV acetaminophen during this period), AL of 67, RR 18. She also had leukocytosis of 20,000 with left shift and 9 bands. Slightly elevated BUN of 18. Meanwhile CT scan of the abdomen and pelvis revealed small volume retroperitoneal hematoma along the course of the proximal left ureter, with a 4 mm stone at the left ureterovesicular junction as well as hematoma along the proximal left ureter. She was given zofran for nausea as well as 3 boluses of IV NS and a 0.4 mg dose of flomax. she also received ciprofloxacin 400 mg IV, which is continued as 40 mg IV BID. Allergies/Medications Allergies: Coded Allergies: cephalexin (From KEFLEX) (UNKNOWN 07/24/16) codeine (UNKNOWN 07/24/16) latex (UNKNOWN 07/24/16) Uncoded Allergies: Allergy Other LATEX,EGGS,TOMATO,ORANGES Med Allergies CODEINE,SULFA,CEPHALEXIN, Home Med List: Cyanocobalamin (Vitamin B-12) (Unknown Strength) TABLET (Unknown Dose) PO DAILY SUPPLEMENT (Reported) Diltiazem HCl (Diltiazem 24HR ER) 180 MG CAP.ER.24H 1 CAP PO DAILY ARRYTHMIA (Reported) Pyridoxine HCl (Vitamin B-6) (Unknown Strength) TABLET (Unknown Dose) PO DAILY SUPPLEMENT (Reported) Vit C/Vit E/Lutein/Min/[place]-3 (Ocuvite Softgel) (Unknown Strength) CAPSULE ( Unknown Dose) PO DAILY SUPPLEMENT (Reported) Current Medications: Current Medications Sig/[place] Start time Last Medication Dose Route Stop Time Status Admin Acetaminophen 1,000 MG Q6P PRN 07/24 0245 AC N/A 1 UNIT IV Acetaminophen 650 MG Q6P PRN 07/24 0100 AC PO Acetaminophen 0 .STK-MED ONE 07/24 2007 DC IV Acetaminophen 1,000 MG ONCE ONE 07/24 1999 DC 07/23 N/A 1 UNIT IV 07/23 Ciprofloxacin 400 MG Q12 07/24 1000 AC Dextrose/Water 200 ML IV Ciprofloxacin 400 MG ONCE ONE 07/23 2229 DC 07/23 Dextrose/Water 200 ML IV 07/23 2328 2246 Cyanocobalamin 1,000 MCG DAILY 07/24 1000 AC PO Diltiazem HCl 180 MG DAILY 07/24 1000 AC PO Hydromorphone HCl 1 MG Q6P PRN 07/24 010 DC IV Ketorolac 15 MG Q6 PRN 07/24 0245 AC 07/24 Tromethamine IV 0954 Ketorolac 15 MG Q6P PRN 07/24 010 DC Tromethamine IV Ketorolac 0 .STK-MED ONE 07/23 233 DC Tromethamine .ROUTE Ketorolac 15 MG ONCE ONE 07/23 233 DC 07/23 Tromethamine IV 07/23 2331 2330 Ketorolac 15 MG ONCE ONE 07/23 1944 DC 07/23 Tromethamine IV 07/23 Ketorolac 0 .STK-MED ONE 07/24 1943 DE Tromethamine .ROUTE Magnesium Sulfate 1 GM ONCE ONE 07/24 514 DC 07/24 Dextrose/Water 100 ML IV 07/24 913 0530 Ondansetron HCl 4 MG ONCE ONE 07/23 1944 DC 07/23 IV 07/23 Ondansetron HCl 0 .STK-MED ONE 07/24 1943 DC .ROUTE Sodium Chloride 1,000 ML .[id number] 07/24 0045 AC 07/24 IV 0100 Sodium Chloride 1,000 ML BOLUS ONE 07/23 2214 DC 07/23 IV 05/4 2246 Sodium Chloride 1,000 ML BOLUS ONE 07/23 2214 DC 05/ IV /4 2258 Sodium Chloride 1,000 ML BOLUS ONE 07/23 2214 DC / IV / 2314 2326 Tamsulosin HCl 0.4 MG DAILY 07/24 1000 AC 07/24 PO 1001 Tamsulosin HCl 0.4 MG ONCE ONE 07/23 2229 DC 07/23 PO 07/23 2230 2246 Review of Systems Review of Systems Constitutional: Reports: chills. Denies: fever, weakness. EENTM: Reports: no symptoms. Cardiovascular: Denies: chest pain, palpitations, peripheral edema. Respiratory: Denies: cough, short of breath, sputum production. GI: Reports: abdominal pain. Denies: nausea (currently no N/V), bloody stool, changes in stool, vomiting. Genitourinary: Reports: frequency, hematuria, hesitation, pain. Denies: discharge, dysuria. Musculoskeletal: Reports: back pain (left flank pain). Skin: Reports: no symptoms. Past History Travel History Traveled to [place] past 21 day No Medical History Blood Transfusion Hx: No Neurological: NONE EENT: NONE Cardiovascular: ARRHYTHMIA Respiratory: NONE Gastrointestinal: diverticulitis Hepatic: NONE Renal: KIDNEY STONES Musculoskeletal: NONE Psychiatric: NONE Endocrine: NONE Blood Disorders: NONE Cancer(s): NONE Surgical History Surgical History: hysterectomy Psychosocial History Where Do You Live? Home Who Do You Live With? sister Primary Language: Dutch Smoking Status: Never Smoked ETOH Use: occasional use Illicit Drug Use: denies illicit drug use Living Will? yes Functional Ability ADLs Independent: dressing, eating, toileting, bathing. Ambulation: independent IADLs Independent: shopping, housework, finances, food prep, telephone, transportation , medication admin. Exam & Diagnostic Data Last 24 Hrs of Vital Signs/I&O Vital Signs Date Time Temp Pulse Resp B/P B/P Pulse O2 O2 Flow FiO2 Mean Ox Delivery Rate 07/24 1001 68 162/69 07/24 0800 97.4 68 20 130/74 94 Room Air 07/24 0245 99 Room Air 07/24 0245 98.2 76 20 148/60 96 Room Air 07/24 0211 72 16 135/63 96 Room Air 07/236 97.4 58 18 155/70 07/23 2245 97.4 58 18 155/70 97 Room Air 07/23 2129 95 07/23 2128 96.4 60 20 147/65 95 Room Air 07/23 1927 97.3 67 18 182/90 97 Room Air Intake & Output 07/24 1600 05 0800 05 0000 Intake Total 3265 100 Output Total 300 300 Balance 2965 -200 Intake, IV 3265 100 Intake, Oral 0 Number 0 Bowel Movements Output, Urine 300 300 Patient 79.01 kg 77.111 kg Weight Weight Bed scale Reported by Patient Measurement Method Physical Exam General Appearance: well developed/nourished, no apparent distress, alert, awake , comfortable Head: atraumatic, normal appearance Eyes: Bilateral: normal appearance. Ears, Nose, Throat: normal ENT inspection Neck: normal inspection, supple Respiratory: normal breath sounds, chest non-tender, no respiratory distress, quiet respiration, lungs clear Cardiovascular: regular rate/rhythm (no murmur) Peripheral Pulses: 2+ radial (R), 2+ radial (L), 2+ dorsalis pedis (R), 2+ dorsalis pedis (L) Gastrointestinal: normal bowel sounds, soft, suprapubic tenderness, left CVA tenderness Extremities: normal inspection, normal capillary refill, normal range of motion, no edema Neurologic/Psych: no motor/sensory deficits, awake, alert, oriented x 3 Cranial Nerves: normal hearing, normal speech, PERRL Skin: intact, normal color, warm/dry Last 48 Hrs of Labs/Aurelio: Laboratory Tests 07/24/16 0547: Anion Gap 8, Estimated GFR > 60, BUN/Creatinine Ratio 16.3, CBC w Diff NO MAN DIFF REQ, RBC 3.80 L, MCV 92.3, MCH 30.6, RDW 13.6, MPV 10.4, Gran % 72.9, Lymphocytes % 17.6 L, Monocytes % 9.1, Eosinophils % 0.1, Basophils % 0.3, Absolute Granulocytes 9.5 H, Absolute Lymphocytes 2.3, Absolute Monocytes 1.2 H, Absolute Eosinophils 0, Absolute Basophils 0, PUBS MCHC 33.2 07/23/16 2335: Lactic Acid 1.5 07/23/162241: Lactic Acid Cancelled 07/23/161941: Urinalysis LIGHT H, Urine Color BLDY H, Urine Clarity TURBD H, Urine pH 5.5, Ur Specific [place] 1.025, Urine Protein >=300 H, Urine Ketones 15 H, Urine Nitrite POS H, Urine Bilirubin NEG, Urine Urobilinogen 0.2, Ur Leukocyte Esterase TRACE H, Ur Microscopic SEDIMENT EXAMINED, Urine RBC PACKD H, Urine WBC 15-25 H, Ur Epithelial Cells FEW, Urine Bacteria PACKD H, Urine Mucus MOD H, Urine Hemoglobin LARGE H, Urine Glucose NEG 07/23/161939: Anion Gap 12, Estimated GFR 54 L, BUN/Creatinine Ratio 18.0, Glucose 161 H, Lactic Acid 1.4, Calcium 9.3, Magnesium 1.8, Total Bilirubin 0.7, AST 44 H, ALT 64 H, Alkaline Phosphatase 125, Troponin I < 0.01, Total Protein 8.1, Albumin 4.7, Globulin 3.4, Albumin/Globulin Ratio 1.4, Amylase 77, Lipase 128, CBC w Diff MAN DIFF ORDERED, RBC 4.78, MCV 92.2, MCH 30.7, RDW 13.5, MPV 10.9 H, Gran % 87.9 H, Lymphocytes % 7.2 L, Monocytes % 4.7, Eosinophils % 0, Basophils % 0.2, Absolute Granulocytes 17.6 H, Segmented Neutrophils 72, Band Neutrophils 9 H, Absolute Lymphocytes 1.4, Lymphocytes 11 L, Monocytes 7, Absolute Monocytes 0.9 H, Eosinophils 1, Absolute Eosinophils 0, Absolute Basophils 0, Platelet Estimate ADEQUATE, Normochromic RBCs VERIFIED, Anisocytosis 1+, PUBS MCHC 33.3 Diagnostic Data Other Results SERVICE DATE: 07/23/16 EXAM TYPE: CAT - CT ABD & PELVIS ANGIOGRAM ADDENDUM: Minimal to moderate left perinephric stranding with fluid also visualized surrounding the proximal left ureter. On the prior noncontrast CT of the abdomen this fluid was higher in density than expected for simple fluid and was suspicious for minimal retroperitoneal hematoma. On the CTA, fluid and stranding surrounding the proximal left ureter measures up to 45 Hounsfield units and was suspicious for blood products. Given the presence of a stone within the distal left ureter, at the left ureterovesicular junction, findings within the left hemiabdomen are most likely medicare sales representative of urinoma secondary to a possible underlying forniceal rupture. There is mild hydronephrosis of the left kidney. Addendum Signed by: LUCAS MAYA MD 07/23/16 2245 EXAMINATION: CT ANGIOGRAM ABDOMEN AND PELVIS CLINICAL INFORMATION: Abdominal pain. Small volume retroperitoneal hematoma. COMPARISON: CT abdomen and pelvis without contrast 07/23/2016. TECHNIQUE: Multiple axial images were obtained through the abdomen and pelvis following the administration of 95 mL of Optiray 350 intravenous contrast. 2-D coronal and sagittal reformatted images of the abdomen and pelvis were obtained at the acquisition workstation. DLP: 677 mGy-cm FINDINGS: LUNG BASES: Bibasilar subsegmental atelectasis. No pleural or pericardial effusions. No visible basilar pulmonary emboli. LIVER, GALLBLADDER, AND BILIARY TREE: Evaluation of the hepatobiliary tree demonstrates diffuse low-attenuation of the liver parenchyma, indicative of diffuse hepatic steatosis. The liver is otherwise normal in size and shape and is visualized measuring approximately 16 cm in length. No hypervascular hepatic lesions are identified. There is no intrahepatic biliary ductal dilatation. The gallbladder is contracted, without evidence of radiopaque gallstones, gallbladder wall thickening, or obvious pericholecystic inflammatory changes. PANCREAS: Unremarkable. SPLEEN: Unremarkable. ADRENAL GLANDS: Unremarkable. KIDNEYS AND URETERS: Evaluation of the bilateral kidneys and renal collecting systems is again notable for a small volume of retroperitoneal hematoma within the left renal fossa, with blood products visualized along the course of the proximal left ureter. Retroperitoneal hematoma within this region is likely secondary to underlying ureteral injury from a passed 4 mm stone, which is visualized at the left ureterovesicular junction. There is hypoenhancement of the left kidney relative to the right kidney. Also noted is mild prominence of the left renal collecting system, which may reflect mild hydronephrosis of the left kidney. Redemonstrated is a 4 mm nonobstructing stone within the mid to lower pole of the left kidney. A minimal amount of perinephric fluid is visualized surrounding the left kidney. The right kidney appears unremarkable. There are multiple right-sided parapelvic cysts. There is no appreciable hydronephrosis of the right kidney. BLADDER: As noted above, there is a 4 mm passed stone at the left ureterovesicular junction. GASTROINTESTINAL TRACT: Normal anatomic orientation of the stomach relative to the duodenum. Normal caliber of abdominal and pelvic bowel loops, without evidence of obstruction or ileus. No circumferential bowel wall thickening with surrounding inflammatory changes to suggest an underlying infectious or inflammatory enterocolitis. Nonvisualization of the appendix. No acute inflammatory changes within the right lower quadrant of the abdomen. Scattered colonic diverticulosis, notably involving the sigmoid colon, without secondary signs of acute diverticulitis. No organizing intra-abdominal fluid collections or free intraperitoneal air. ABDOMINAL WALL: No significant hernia is appreciated. LYMPH NODES: No significant abdominal or pelvic adenopathy. VASCULAR: The abdominal aorta and its branching vessels, specifically the celiac artery, superior mesenteric artery, bilateral renal arteries and inferior mesenteric artery as well as the bilateral common iliac arteries are patent and opacified by intravenous contrast, without aneurysmal dilatation. There are no centrally displaced intraluminal flaps within these vessels to suggest dissection. There are no visible aneurysms arising from the left renal artery. The imaged abdominal veins appear to be opacified by contrast. Specifically, there is contrast opacification of the hepatic veins as well as the main portal vein and SMV, although evaluation for patency of these vessels is limited given phase of contrast imaging. Incidental note is made of a circumaortic left renal vein. PELVIC VISCERA: Status post hysterectomy. No adnexal masses. OSSEOUS STRUCTURES: No acute osseous abnormality. Mild multilevel degenerative changes of the lumbar spine and moderate multilevel facet arthrosis of the lumbar spine. No visible destructive osseous lesions. IMPRESSION: 1. Small volume retroperitoneal hematoma along the course of the proximal left ureter. This is favored to be secondary to an underlying left ureteral injury given the presence of a 4 mm stone at the left ureterovesicular junction. Hematoma along the proximal left ureter measures approximately 2.2 x 2.8 x 3.0 cm in AP, transverse and craniocaudal dimensions respectively. There is minimal left-sided perinephric stranding. 2. Mild prominence of the left renal collecting system, indicative of mild hydronephrosis of the left kidney. There is hypoenhancement of the left kidney relative to the right kidney. This finding is nonspecific but may be secondary to underlying obstruction of the left kidney. 3. No aneurysmal dilatation of the abdominal aorta or its branching vessels, including the left renal artery. 4. Hepatic steatosis. This critical result was discussed with Dr. Eh Barnard at 10:05 PM on 07/23/2016 and it was ascertained that the content and urgency of the report was understood at the time of direct communication. DICTATED BY: LUCAS MAYA MD DATE/TIME DICTATED:07/23/162139 DAY CARE DIRECTOR:JUDITH DATE/TIME TRANSCRIBED:07/23/162139 SERVICE DATE: 07/23/16 EXAM TYPE: CAT - CT ABD & PELVIS W/O IV CONTRAS EXAMINATION: CT ABDOMEN AND PELVIS WITHOUT CONTRAST CLINICAL INFORMATION: Left flank pain radiating to the left abdomen. COMPARISON: None available. TECHNIQUE: Multidetector volumetric imaging was performed from the superior aspect of the liver through the pubic symphysis. Sagittal and coronal reformatted images were obtained on the technologist's workstation. FINDINGS: There is amorphus high density retroperitoneal hematoma on the left side that is centered just anterior to the left ureteropelvic junction and proximal left ureter which are inseparable from hematoma. The left renal collecting system does appear mildly dilated. There are no radiopaque calculi along the course of the ureters. There is a 4 mm calculus within the lateral interpolar left kidney. There are parapelvic cysts on the right side. There is left perinephric stranding. Mild scarring versus atelectasis at the medial right lung base. Diffuse hepatic steatosis. Limited evaluation of the unenhanced spleen, adrenal glands, gallbladder, and pancreas reveals no definite abnormality. The large and small bowel are normal in caliber without evidence of mechanical obstruction. No focal inflammatory changes adjacent to the large or the small bowel. Sigmoid diverticulosis without evidence of acute diverticulitis. There is no free air and there is no intra-abdominal free fluid. No mesenteric or retroperitoneal adenopathy. Uterus is surgically absent. No pelvic adenopathy. There are no acute osseous abnormalities. Grade 1 degenerative anterolisthesis of L4 on L5 in the setting of severe facet arthropathy at this level. No significant soft tissue abnormality. IMPRESSION: - There is retroperitoneal hematoma on the left side that is centered just anterior to the left ureteropelvic junction and proximal left ureter which are inseparable from hematoma. In speaking with the referring clinician, the patient does have an elevated white count and left flank pain. Possible etiology for these blood products could be ureteral injury or calyceal rupture in the setting of prior obstruction with no radiopaque calculus identified as the source of obstruction on this exam. Alternatively ureteral or calyceal injury from underlying pyelonephritis could explain these findings. If renal function tests allow, a CT urogram excluding the noncontrast portion and CTA of the abdomen would be helpful in assessing the renal collecting system more definitively and for ensuring that there is no renal artery aneurysm to explain these findings. - There is mild dilatation of the left renal collecting system and there is a 4 mm calculus within the lateral interpolar left kidney. There are parapelvic cysts on the right side. - Diffuse hepatic steatosis. Assessment/Plan Impression/Plan: Patient is a 76 year-old lady with PMH of arrhythmia, diverticulitis, kidney stones (15 years ago) who came to the ED after a day of severe left flank pain, nausea/vomiting and loose stools, she also developed hematuria in the ED. Patient was admitted overnight to the ICU for closer monitoring. Problem list and plan: Nephrolithiasis and ruptured left kidney fornix -CT scan of the abdomen and pelvis revealed small volume retroperitoneal hematoma along the course of the proximal left ureter, with a 4 mm stone at the left ureterovesicular junction as well as hematoma along the proximal left ureter. -Urology was consulted, per Dr. Thompson, if the stone does not pass by tomorrow, she will take her to the OR left ureteroscopy with laser lithotripsy and stone removal and stent placement. * continue IV and oral hydration * H/H decreased from 14.7/44.1 to 11.6/35.0 this am, will repeat levels this evening * Pain control with acetaminophen (mild-mod) and ketorolac (severe) * continue ciprofloxacin 400 mg BID * Tamsulosin 0.4 mg daily Possible UTI and pyelonephritis -Remains aferile, reports chills, hesitancy, hematuria, suprapubic pain and tenderness, as well as left sided CVA tenderness. leukocytosis of 20,000, 87.9 PMNs and 9 bands on admission, which is resolving (WBC down to 13.0). -Mild elevation of creatinine to 1.0 on admission with BUN of 18 (BUN/Cr <20), this is also resolving (Cr 0.8 and BUN 13) - most likely post-renal * Continue monitor vital signs * Continue IV hydration * Continue ciprofloxacin 400 mg BID * Monitor BEP in am History of Arrhythmia, not specified -On diltizem 180 mg daily -No reprots of palpitation, headache, dizziness, chest pain -EKG shows NSR, regular rate of 80, with multiple PVCs * continue diltizem 180 daily DVT px ALPS, no pharmacological due to hematuria Regular diet Full Code Problem List: 1. Hydronephrosis 2. Kidney stone 3. Pyelonephritis 4. Retroperitoneal hematoma 5. Left ureteral injury Consult Acknowledgment - Thank you for your consult request. SULAIMAN WU,[facility] 07/24/16 1400: Assessment/Plan Other Findings/Comments: Attending addendum agree with above Physical Exam General Appearance Alert, Oriented X3, Cooperative, No Acute Distress Skin No Rashes, No Breakdown, No Significant Lesion Skin Temp/Moisture Exam: Warm/Dry HEENT Atraumatic, PERRLA, EOMI, Mucous Membr. moist/pink Neck Supple, No JVD Lymphatic no cervical lymphadenopathy Cardiovascular Normal S1, Normal S2, No Murmurs, irrigular Lungs Clear to Auscultation, Normal Air Movement Abdomen Normal Bowel Sounds, Soft, left lumber tenderness and left flank tenderness Neurological Normal Gait, Normal Speech, Strength at 5/5 X4 Ext, Normal Tone, Sensation Intact, Cranial Nerves 3-12 NL, Reflexes 2+ Extremities No Clubbing, No Cyanosis, No Edema, Normal Pulses, No Tenderness/ Swelling 76yo female with a hx of a remote kidney stone 15 yrs ago presented with severe left abdominal pain with N/V/D and urine suspicious for UTI as well as CT findings for ruptured left fornix and distal left 4mm UVJ stone with mild hydroneprhosis. ISsues Hematoma and small fluid collection from ruptured left fornix Pain Unlikely sig infection but cannot rule out History of arrythmia Hepatic seatosis REC cont ivf and when stable dc follow cbc cont to monitor for any arrythmia today follow cultures Alps urology eval noted Ok to the floor in the pm if stable Consult Acknowledgment - Thank you for your consult request.
[2016-07-24 08:00] VITALS: BP 130/74
--- NOTE | 2016-07-24 08:06 | Cons- Urology ---
General Information and HPI Consulting Request Date of Consult: 07/24/16 Requested By: SINA COYLE MD Reason for Consult: ureteral stone with retroperitoneal fluid Source of Information: patient Exam Limitations: no limitations History of Present Illness: 76 year old female with 1 day hx of severe left abd pain associated with N/V multiple times and loose stool which prompted a call to 911. The abdominal pain was quite severe at 10/10 and radiated to the suprapubic region. She also had gross hematuria with no LUTsx. She has had a kidney stone over 15 yrs ago with spontaneous passage. SHe has had no knowledge of any intermittent stones. SHe drinks a fair amount of water. She has no hx of recurrent UTIs. In the ER, CT scan revealed collection in the retroperitoneum on the left side and no stones. Due to the collection seen around the left kidney which was suspicious for blood, a CT angiogram was ordered and it showed no active bleed but revealed a distal 4mm UVJ stone with no hydroureter but mild hydronephrosis. Discussion with the radiologist, confirmed a suspected urinoma due to a forniceal rupture and mild hematoma. Patient has past medical history significant for arrhythmia, diverticulosis, kidney stone; HSY for cysts. Allergies/Medications Allergies: Coded Allergies: cephalexin (From KEFLEX) (UNKNOWN 07/24/16) codeine (UNKNOWN 07/24/16) latex (UNKNOWN 07/24/16) Uncoded Allergies: Allergy Other LATEX,EGGS,TOMATO,ORANGES Med Allergies CODEINE,SULFA,CEPHALEXIN, Home Med List: Cyanocobalamin (Vitamin B-12) (Unknown Strength) TABLET (Unknown Dose) PO DAILY SUPPLEMENT (Reported) Diltiazem HCl (Diltiazem 24HR ER) 180 MG CAP.ER.24H 1 CAP PO DAILY ARRYTHMIA (Reported) Pyridoxine HCl (Vitamin B-6) (Unknown Strength) TABLET (Unknown Dose) PO DAILY SUPPLEMENT (Reported) Vit C/Vit E/Lutein/Min/[place]-3 (Ocuvite Softgel) (Unknown Strength) CAPSULE ( Unknown Dose) PO DAILY SUPPLEMENT (Reported) Current Medications: Current Medications Sig/Tootie Start time Last Medication Dose Route Stop Time Status Admin Acetaminophen 1,000 MG Q6P PRN 07/24 0245 AC N/A 1 UNIT IV Acetaminophen 650 MG Q6P PRN 07/24 0100 AC PO Acetaminophen 0 .STK-MED ONE 07/24 2007 DC IV Acetaminophen 1,000 MG ONCE ONE 07/24 1999 DC 07/23 N/A 1 UNIT IV 07/23 Ciprofloxacin 400 MG Q12 07/24 1000 AC Dextrose/Water 200 ML IV Ciprofloxacin 400 MG ONCE ONE 07/23 2229 DC 07/23 Dextrose/Water 200 ML IV 07/23 2328 224 Cyanocobalamin 1,000 MCG DAILY 07/24 1000 AC PO Diltiazem HCl 180 MG DAILY 07/24 1000 AC PO Hydromorphone HCl 1 MG Q6P PRN 07/24 0100 DC IV Ketorolac 15 MG Q6 PRN 07/24 0245 AC Tromethamine IV Ketorolac 15 MG Q6P PRN 07/24 010 DC Tromethamine IV Ketorolac 0 .STK-MED ONE 07/24 2331 DC Tromethamine .ROUTE Ketorolac 15 MG ONCE ONE 07/23 2329 DC 07/23 Tromethamine IV 07/23 2330 2330 Ketorolac 15 MG ONCE ONE 07/23 1944 DC 07/23 Tromethamine IV 07/23 1945 194 Ketorolac 0 .STK-MED ONE 07/24 1943 DC Tromethamine .ROUTE Magnesium Sulfate 1 GM ONCE ONE 07/24 0515 AC 07/24 Dextrose/Water 100 ML IV 07/24 09 0530 Ondansetron HCl 4 MG ONCE ONE 07/23 1944 DC 07/23 IV 07/23 1945 194 Ondansetron HCl 0 .STK-MED ONE 07/24 1943 DC .ROUTE Sodium Chloride 1,000 ML .[id number] 07/24 0045 AC 07/24 IV 0100 Sodium Chloride 1,000 ML BOLUS ONE 07/23 2214 DC 07/23 IV 07/23 2313 2246 Sodium Chloride 1,000 ML BOLUS ONE 07/23 2214 DC 07/23 IV 07/23 2313 225 Sodium Chloride 1,000 ML BOLUS ONE 07/23 2214 DC 07/23 IV 07/23 2313 2326 Tamsulosin HCl 0.4 MG DAILY 07/24 1000 AC PO Tamsulosin HCl 0.4 MG ONCE ONE 07/23 2229 DC 07/23 PO 07/23 Past History Medical History Blood Transfusion Hx: No Neurological: NONE EENT: NONE Cardiovascular: ARRHYTHMIA Respiratory: NONE Gastrointestinal: diverticulitis Hepatic: NONE Renal: KIDNEY STONES Musculoskeletal: NONE Psychiatric: NONE Endocrine: NONE Blood Disorders: NONE Cancer(s): NONE CONTRACT PROJECT MANAGER/Reproductive: NONE Surgical History Pertinent Surgical History: hysterectomy Psychosocial History Where Do You Live? Home Who Do You Live With? sister Services at Home: None Primary Language: Polish Smoking Status: Never Smoked ETOH Use: occasional use Illicit Drug Use: denies illicit drug use Living Will? yes Functional Ability ADLs Independent: dressing, eating, toileting, bathing. Ambulation: independent IADLs Independent: shopping, housework, finances, food prep, telephone, transportation , medication admin. Review of Systems Review of Systems Constitutional: Reports: chills, weakness. EENTM: Reports: no symptoms. Cardiovascular: Reports: no symptoms. Respiratory: Reports: no symptoms. GI: Reports: see HPI. Genitourinary: Reports: dysuria (SP discomfort). Musculoskeletal: Reports: no symptoms. Skin: Reports: no symptoms. Neurological/Psychological: Reports: no symptoms. Hematologic/Endocrine: Reports: no symptoms. Immunologic/Allergic: Reports: no symptoms. Exam & Diagnostic Data Vital Signs and I&O Vital Signs Date Time Temp Pulse Resp B/P B/P Pulse O2 O2 Flow FiO2 Mean Ox Delivery Rate 07/24 0245 99 Room Air 07/24 0245 98.2 76 20 148/60 96 Room Air 07/24 0211 72 16 135/63 96 Room Air 07/23 2246 97.4 58 18 155/70 07/23 2245 97.4 58 18 155/70 97 Room Air 07/23 2130 95 07/23 2128 96.4 60 20 147/65 95 Room Air 07/23 1927 97.3 67 18 182/90 97 Room Air Intake & Output 07/24 1600 07/24 0800 / 0000 07/23 1600 07/23 0800 07/23 0000 Intake Total 3265 100 Output Total 300 300 Balance 2965 -200 Intake, IV 3265 100 Intake, Oral 0 Number 0 Bowel Movements Output, Urine 300 300 Patient 79.01 kg 77.111 kg Weight Weight Bed scale Reported by Patient Measurement Method Physical Exam: awake and alert, NAD lying in bed abd soft, ND/NT No diaz in place Physical Exam General Appearance: well developed/nourished, no apparent distress, alert, awake , comfortable Head: atraumatic, normal appearance Eyes: Bilateral: normal appearance. Ears, Nose, Throat: normal ENT inspection Neck: normal inspection Respiratory: no respiratory distress Gastrointestinal: soft, non-tender Rectal: deferred Neurologic/Psych: awake, alert, oriented x 3 Cranial Nerves: normal hearing, normal speech Skin: intact, normal color, warm/dry Last 24 Hours of Labs: Laboratory Tests 07/24 07/23 07/23 0530 2335 2242 Chemistry Sodium (137 - 145 mmol/L) 141 Potassium (3.5 - 5.1 mmol/L) 3.8 Chloride (98 - 107 mmol/L) 110 H Carbon Dioxide (22 - 30 mmol/L) 23 Anion Gap (5 - 16) 8 BUN (7 - 17 mg/dL) 13 Creatinine (0.5 - 1.0 mg/dL) 0.8 Estimated GFR (>60 ml/min) > 60 BUN/Creatinine Ratio (7 - 25 %) 16.3 Lactic Acid (0.7 - 2.1 mmol/L) 1.5 Cancelled Hematology CBC w Diff NO MAN DIFF REQ WBC (4.8 - 10.8 /CUMM) 13.0 H RBC (4.20 - 5.40 /CUMM) 3.80 L Hgb (12.0 - 16.0 G/DL) 11.6 L Hct (37 - 47 %) 35.0 L MCV (81.0 - 99.0 FL) 92.3 MCH (27.0 - 31.0 PG) 30.6 RDW (11.5 - 14.5 %) 13.6 Plt Count (130 - 400 /CUMM) 208 MPV (7.4 - 10.4 FL) 10.4 Gran % (42.2 - 75.2 %) 72.9 Lymphocytes % (20.5 - 51.1 %) 17.6 L Monocytes % (1.7 - 9.3 %) 9.1 Eosinophils % (0 - 5 %) 0.1 Basophils % (0.0 - 2.0 %) 0.3 Absolute Granulocytes (1.4 - 6.5 /CUMM) 9.5 H Absolute Lymphocytes (1.2 - 3.4 /CUMM) 2.3 Absolute Monocytes (0.10 - 0.60 /CUMM) 1.2 H Absolute Eosinophils (0.0 - 0.7 /CUMM) 0 Absolute Basophils (0.0 - 0.2 /CUMM) 0 PUBS MCHC (33.0 - 37.0 G/DL) 33.2 07/23 Chemistry Sodium (137 - 145 mmol/L) 140 Potassium (3.5 - 5.1 mmol/L) 4.1 Chloride (98 - 107 mmol/L) 102 Carbon Dioxide (22 - 30 mmol/L) 26 Anion Gap (5 - 16) 12 BUN (7 - 17 mg/dL) 18 H Creatinine (0.5 - 1.0 mg/dL) 1.0 Estimated GFR (>60 ml/min) 54 L BUN/Creatinine Ratio (7 - 25 %) 18.0 Glucose (65 - 99 mg/dL) 161 H Lactic Acid (0.7 - 2.1 mmol/L) 1.4 Calcium (8.4 - 10.2 mg/dL) 9.3 Magnesium (1.6 - 2.3 mg/dL) 1.8 Total Bilirubin (0.2 - 1.3 mg/dL) 0.7 AST (14 - 36 U/L) 44 H ALT (9 - 52 U/L) 64 H Alkaline Phosphatase (<127 U/L) 125 Troponin I (< 0.11 ng/ml) < 0.01 Total Protein (6.3 - 8.2 g/dL) 8.1 Albumin (3.5 - 5.0 g/dL) 4.7 Globulin (1.9 - 4.2 gm/dL) 3.4 Albumin/Globulin Ratio (1.1 - 2.2 %) 1.4 Amylase (30 - 110 U/L) 77 Lipase (23 - 300 U/L) 128 Hematology CBC w Diff MAN DIFF ORDERED WBC (4.8 - 10.8 /CUMM) 20.0 H RBC (4.20 - 5.40 /CUMM) 4.78 Hgb (12.0 - 16.0 G/DL) 14.7 Hct (37 - 47 %) 44.1 MCV (81.0 - 99.0 FL) 92.2 MCH (27.0 - 31.0 PG) 30.7 RDW (11.5 - 14.5 %) 13.5 Plt Count (130 - 400 /CUMM) 269 MPV (7.4 - 10.4 FL) 10.9 H Gran % (42.2 - 75.2 %) 87.9 H Lymphocytes % (20.5 - 51.1 %) 7.2 L Monocytes % (1.7 - 9.3 %) 4.7 Eosinophils % (0 - 5 %) 0 Basophils % (0.0 - 2.0 %) 0.2 Absolute Granulocytes (1.4 - 6.5 /CUMM) 17.6 H Segmented Neutrophils (42.2 - 75.2 %) 72 Band Neutrophils (0.0 - 5.0 %) 9 H Absolute Lymphocytes (1.2 - 3.4 /CUMM) 1.4 Lymphocytes (20.5 - 51.1 %) 11 L Monocytes (1.7 - 9.3 %) 7 Absolute Monocytes (0.10 - 0.60 /CUMM) 0.9 H Eosinophils (0 - 5.0 %) 1 Absolute Eosinophils (0.0 - 0.7 /CUMM) 0 Absolute Basophils (0.0 - 0.2 /CUMM) 0 Platelet Estimate (ADEQUATE) ADEQUATE Normochromic RBCs VERIFIED Anisocytosis 1+ PUBS MCHC (33.0 - 37.0 G/DL) 33.3 Urines Urinalysis LIGHT H Urine Color (YEL,AMB,STR) BLDY H Urine Clarity (CLEAR) TURBD H Urine pH (5.0 - 8.0) 5.5 Ur Specific Stanton (1.001 - 1.035) 1.025 Urine Protein (NEG,<30 MG/DL) >=300 H Urine Ketones (NEG) 15 H Urine Nitrite (NEG) POS H Urine Bilirubin (NEG) NEG Urine Urobilinogen (0.1 - 1.0 EU/dl) 0.2 Ur Leukocyte Esterase (NEG) TRACE H Ur Microscopic SEDIMENT EXAMINED Urine RBC (0 - 5 /HPF) PACKD H Urine WBC (0 - 2 /HPF) 15-25 H Ur Epithelial Cells (NONE,FEW) FEW Urine Bacteria (NEG/NONE) PACKD H Urine Mucus (FEW,NONE) MOD H Urine Hemoglobin (NEG) LARGE H Urine Glucose (N MG/DL) NEG Imaging Results: ADDENDUM: Minimal to moderate left perinephric stranding with fluid also visualized surrounding the proximal left ureter. On the prior noncontrast CT of the abdomen this fluid was higher in density than expected for simple fluid and was suspicious for minimal retroperitoneal hematoma. On the CTA, fluid and stranding surrounding the proximal left ureter measures up to 45 Hounsfield units and was suspicious for blood products. Given the presence of a stone within the distal left ureter, at the left ureterovesicular junction, findings within the left hemiabdomen are most likely kiosk sales representative of urinoma secondary to a possible underlying forniceal rupture. There is mild hydronephrosis of the left kidney. Assessment/Plan Assessment/Plan 76yo female with a hx of a remote kidney stone 15 yrs ago presented with severe left abdominal pain with N/V/D and urine suspicious for UTI as well as CT findings for ruptured left fornix and distal left 4mm UVJ stone with mild hydroneprhosis. She is likely dehydrated as well with a normal Cr. Recommend pain management, Flomax 0.8mg daily and IVF. Strain urine. If she does not pass the stone today, NPO after MN for left ureteroscopy with laser lithotripsy and stone removal and stent placement for tomorrow (thursday). Patient agrees to this plan and answered all questions. Consult Acknowledgment - Thank you for your consult request.
[2016-07-24 15:09] LABS: ABSOLUTE BASOPHIL COUNT 0.1 /CUMM (0.0-0.2); ABSOLUTE EOSINOPHIL COUNT 0 /CUMM (0.0-0.7); ABSOLUTE LYMPH COUNT 2.3 /CUMM (1.2-3.4); BASOPHIL % 0.5 % (0.0-2.0); EOSINOPHIL % 0.1 % (0-5); GRANULOCYTE % 72.6 % (42.2-75.2); HEMATOCRIT 37.2 % (37-47); MEAN CORPUSCULAR HGB 30.5 PG (27.0-31.0); MEAN CORPUSCULAR HGB CONC 33.3 G/DL (33.0-37.0); MEAN CORPUSCULAR VOLUME 91.4 FL (81.0-99.0); MEAN PLATELET VOLUME 10.9 FL (7.4-10.4); PLATELET COUNT 195 /CUMM (130-400); RBC DISTRIBUTION WIDTH 13.7 % (11.5-14.5); RED BLOOD CELL CT 4.06 /CUMM (4.20-5.40); WHITE BLOOD CELL COUNT 12.5 /CUMM (4.8-10.8)
[2016-07-24 16:31] VITALS: BP 158/70
--- NOTE | 2016-07-24 16:45 | NUR ---
PT IS AWAKE AND ORIENTED. MEDICATED X 1 FOR LEFT FLANK PAIN WITH IV TORADOL WITH RELIEF. IVF INFUSING AT 75 MLS PER HOUR. OOB AND AMBULATING TO BATHROOM. URINE IS PINK AT TIMES AND YELLOW AT TIMES. ALL URINE STRAINED.
--- NOTE | 2016-07-24 20:10 | NUR ---
AVSS. A/OX3.FOLLOW COMMANDS. DOVER WITH +CMS.+PP.NO EDEMA.IVF CONT VIA PIV SITE. C/O LEFT ABD DISCOMFORT.VOIDING GOOD UO AND STRAINING IT FOR ANY STONES.SONDRA PO WELL. PLAN FOR NPO AFTER MIDNIGHT.OR IN AM.PLAN OF CARE REVIEWED
[2016-07-25] VITALS: BP 150/78
--- NOTE | 2016-07-25 03:00 | NUR ---
PATIENT ALERT AND ORIENTED. OOB AD JOHNNIE TO BATHROOM. STRAINING URINE. NO STONES NOTED.URINE IS YELLOW IN COLOR.NPO AFTER MIDNIGHT FOR OR IN AM.
[2016-07-25 05:53] LABS: ABSOLUTE BASOPHIL COUNT 0.1 /CUMM (0.0-0.2); ABSOLUTE EOSINOPHIL COUNT 0 /CUMM (0.0-0.7); ABSOLUTE GRANULOCYTE CT 9.7 /CUMM (1.4-6.5); ABSOLUTE LYMPH COUNT 2.4 /CUMM (1.2-3.4); ABSOLUTE MONOCYTE COUNT 1.3 /CUMM (0.10-0.60); BASOPHIL % 0.5 % (0.0-2.0); EOSINOPHIL % 0.3 % (0-5); GRANULOCYTE % 71.7 % (42.2-75.2); MEAN CORPUSCULAR HGB 30.9 PG (27.0-31.0); MEAN CORPUSCULAR HGB CONC 33.3 G/DL (33.0-37.0); MEAN CORPUSCULAR VOLUME 92.6 FL (81.0-99.0); MEAN PLATELET VOLUME 10.8 FL (7.4-10.4); PLATELET COUNT 196 /CUMM (130-400); RBC DISTRIBUTION WIDTH 13.8 % (11.5-14.5); RED BLOOD CELL CT 3.99 /CUMM (4.20-5.40); WHITE BLOOD CELL COUNT 13.5 /CUMM (4.8-10.8)
[2016-07-25 08:00] VITALS: BP 158/70
--- NOTE | 2016-07-25 08:35 | NUR ---
PT AWAKE AND ORIENTED. REPORTS PAIN LEFT FLANK AND ABDOMEN. IV TYLENOL GIVEN WITH RELIEF. MAINTAINED NPO. IVF AT 75 PER HOUR. CARDIEZEM HELD PER ANESTHESIA. TRANSFERRED TO OR.
--- NOTE | 2016-07-25 09:46 | PN- Housestaff ---
Subjective Follow-up For: 1. Nephrolithiasis and ruptured left kidney fornix 2. Possible UTI and pyelonephritis with hematuria and CVA tenderness and chills 3. MARIAN, most likely post-renal 4. History of arrhythmia on cardizem Subjective: I saw and examined the patient at bedside this am, she is alert and oriented in no distress. Had a good night sleep, still reports some mild pain on the left side urine this morning with small reddish residues, not painful, did not appear as a stone and looked more like a soft tissue residue (2-3 mm in size). Has not passed the stone, does not report noticing blood in the urine, still has some left sided abdominal pain and flank pain 3/10 at max. She is NPO to go to the OR this am for a ureteroscopy and possible lithotripsy. Review of Systems Constitutional: Reports: chills. Denies: fever, malaise. EENTM: Reports: no symptoms. Cardiovascular: Denies: chest pain, palpitations, peripheral edema. Respiratory: Denies: cough, short of breath. Gastrointestinal: Reports: abdominal pain. Denies: nausea, changes in stool, vomiting. Genitourinary: Denies: dysuria, hematuria, hesitation. Musculoskeletal: Reports: back pain. Skin: Reports: no symptoms. Neurological/Psychological: Reports: no symptoms. Objective Last 24 Hrs of Vital Signs/I&O Vital Signs Date Time Temp Pulse Resp B/P B/P Pulse O2 O2 Flow FiO2 Mean Ox Delivery Rate / 0800 97.0 58 16 158/70 94 Room Air 05/05 0000 94 Room Air 05/ 0000 97.9 53 16 150/78 94 Room Air / 1631 97.9 54 16 158/70 94 Room Air 05/04 1001 68 162/69 Intake & Output 05/05 1600 05/05 0800 05/05 0000 Intake Total 1009 540 Output Total 925 480 Balance 84 60 Intake, IV 1009 300 Intake, Oral 240 Output, Urine 925 480 Patient 79.01 kg Weight Physical Exam General Appearance: Alert, Oriented X3, Cooperative, No Acute Distress Skin: No Significant Lesion Skin Temp/Moisture Exam: Warm/Dry Sepsis Skin Exam (color): Normal for Ethnicity HEENT: Atraumatic, EOMI, Mucous Membr. moist/pink Neck: Supple Cardiovascular: Regular Rate, Normal S1, Normal S2, No Murmurs Lungs: Clear to Auscultation, Normal Air Movement Abdomen: Soft, mild and suprapubic LLQ tenderness Neurological: Normal Speech, Normal Tone Extremities: No Edema, Normal Pulses Vascular: Pulses Symmetrical Current Medications: Current Medications Sig/Tootie Start time Last Medication Dose Route Stop Time Status Admin Acetaminophen 1,000 MG Q6P PRN 07/24 0245 AC 07/25 N/A 1 UNIT IV 0713 Acetaminophen 650 MG Q6P PRN 07/24 0100 AC 07/24 PO 2146 Ciprofloxacin 400 MG Q12 07/24 1000 AC 07/24 Dextrose/Water 200 ML IV 2123 Cyanocobalamin 1,000 MCG DAILY 07/24 1000 AC 07/24 PO 1703 Diltiazem HCl 180 MG DAILY 07/24 1000 AC 07/24 PO 1206 Ketorolac 15 MG Q6 PRN 07/24 0245 AC 07/24 Tromethamine IV 0954 Magnesium Sulfate 1 GM ONCE ONE 07/25 0745 AC 07/25 Dextrose/Water 100 ML IV 07/25 1144 0800 Sodium Chloride 1,000 ML .[id number] 07/24 0045 AC 07/24 IV 0100 Tamsulosin HCl 0.4 MG DAILY 07/24 1000 AC 07/24 PO 1001 Last 24 Hrs of Lab/Aurelio Results Last 24 Hrs of Labs/Mics: Laboratory Tests 07/25/16 0530: Anion Gap 11, Estimated GFR 44 L, BUN/Creatinine Ratio 7.5, Magnesium 1.8, CBC w Diff NO MAN DIFF REQ, RBC 3.99 L, MCV 92.6, MCH 30.9, RDW 13.8, MPV 10.8 H, Gran % 71.7, Lymphocytes % 18.1 L, Monocytes % 9.4 H, Eosinophils % 0.3, Basophils % 0.5, Absolute Granulocytes 9.7 H, Absolute Lymphocytes 2.4, Absolute Monocytes 1.3 H, Absolute Eosinophils 0, Absolute Basophils 0.1, PUBS MCHC 33.3 07/24/16 1410: CBC w Diff NO MAN DIFF REQ, RBC 4.06 L, MCV 91.4, MCH 30.5, RDW 13.7, MPV 10.9 H, Gran % 72.6, Lymphocytes % 18.4 L, Monocytes % 8.4, Eosinophils % 0.1, Basophils % 0.5, Absolute Granulocytes 9.0 H, Absolute Lymphocytes 2.3, Absolute Monocytes 1.0 H, Absolute Eosinophils 0, Absolute Basophils 0.1, PUBS MCHC 33.3 Assessment/Plan Assessment: Patient is a 76 year-old lady with PMH of arrhythmia, diverticulitis, kidney stones (15 years ago) who came to the ED after a day of severe left flank pain, nausea/vomiting and loose stools, she also developed hematuria in the ED. Patient was admitted overnight to the ICU for closer monitoring, she remained hemodynamically stable and a repeat H/H also showed improvement therefore she was downgraded to GM yesterday evening. Problem list and plan: Nephrolithiasis and ruptured left kidney fornix CT scan of the abdomen and pelvis revealed small volume retroperitoneal hematoma along the course of the proximal left ureter, with a 4 mm stone at the left ureterovesicular junction as well as hematoma along the proximal left ureter. * continued IV and oral hydration * H/H remains stable, will monitor * Pain control with acetaminophen (mild-mod) and ketorolac (severe) * continue ciprofloxacin 400 mg BID * Tamsulosin 0.4 mg daily * has not passed the stone, she is in the OR for ureteroscopy and possible lithotripsy this am Possible UTI and pyelonephritis * Remains aferile, still reports chills, has suprapubic pain and tenderness, as well as left sided CVA tenderness. no hesitancy or hematuria. * had leukocytosis of 20,000, 87.9 PMNs and 9 bands on admission, which is resolving (WBC is 13.5 today with no bands). * Continue ciprofloxacin 400 mg BID MARIAN Today there is elevation of creatinine to 1.2 from 1.0 on admission with BUN of 9 (BUN/Cr <20 indicating that it is post-renal) * Continue monitor vital signs * Continue IV hydration * Monitor BEP in am History of Arrhythmia, not specified On diltizem 180 mg daily No reprots of palpitation, headache, dizziness, chest pain EKG shows NSR, regular rate of 80, with multiple PVCs * continue diltizem 180 daily DVT px ALPS Regular diet Full Code Problem List: 1. Hydronephrosis 2. Left ureteral injury 3. Kidney stone 4. Pyelonephritis 5. Retroperitoneal hematoma Pain Ratin Pain Location: left flank and lower abdomen Pain Goal: Pain 4 or less Pain Plan: Tylenol, IV acetaminophen and ketorolac Tomorrow's Labs & Rationales: CBC (monitor drop in H/H and leukocytosis) and BEP, Mg (elevated cr and monitor electrolytes)
[2016-07-25 11:07] VITALS: BP 142/86
--- NOTE | 2016-07-25 11:38 | RADIOLOGY REPORT ---
EXAMINATION: XR ABDOMEN C-ARM FLUOROSCOPY ASSISTANCE. CLINICAL INDICATION: Left ureteroscopy, and stent placement. COMPARISON: None. TECHNIQUE: 3 spot radiographs were obtained at the time of the procedure. Fluoroscopy time: 4 seconds. FINDINGS: 3 spot radiographs were obtained at the time of the left-sided ureteroscopy and internal stent placement. Full procedural details will be dictated by Dr. Thompson. IMPRESSION: Left-sided ureteroscopy and stent placement. Full procedural details will be dictated by Dr. Thompson.
--- NOTE | 2016-07-25 11:49 | NUR ---
PT TO BE TRANSFERRED TO FLOOR POST OP. REPORT WAS CALLED TO RN.
--- NOTE | 2016-07-25 13:00 | NUR ---
1254 PATIENT ARRIVED TO THE FLOOR FROM THE P[ACU, A+O X3, ON 2LNC, BP 188/86, OTHER VSS, NO S/O DISTRESS, ORIENTED TOT HE ROOM, BED LOW, LOCKED, CALL LIGHT IN REACH.
--- NOTE | 2016-07-25 13:09 | Operative Report ---
Operative/Inv Procedure Report Surgery Date: 07/25/16 Name of Procedure: left ureteroscopy with laser lithotripsy, stone extraction, and stent placement. Pre-Operative Diagnosis: left obstructing ureteral stone Post-Operative Diagnosis: same Estimated Blood Loss: mauricio Surgeon/Bioinformatics Engineer: Yolette Thompson Anesthesia: laryngeal mask airway Drains: 6x26cm stent Specimens: stone fragments Complications: none Condition: stable Operative Indication: left obstructing ureteral stone with ruptured fornix Operative/Procedure Note Note: This an operative dictation on patient Abbey Veronica. She was seen as an inpatient consult for left lower quadrant pain and found to have a left distal ureteral stone and ruptured fornix in the renal pelvis area with the small retroperitoneal urinoma and bleed. She was the stable but with an active UTI and was given the risks benefits and alternatives of ureteroscopy with laser lithotripsy and stone removal with stent placement. All questions were answered for her. Patient was identified in the holding area and brought to the operating room placed on the operating table in the supine position. Once timeout was performed she was placed in the dorsal lithotomy position. IV antibiotics were infused Cipro 400 mg and LMA general anesthesia was given. She was prepped and draped in the standard sterile fashion. Cystoscopy was performed and the bladder was globally inspected. There were no bladder lesions or abnormalities noted. Ureteral orifices were in their normal anatomic anatomic position. The left ureter was cannulated with a sensor guidewire and a semirigid ureteroscope was placed into the ureter without difficulty. The stone was easily identified in the distal ureter and was yellow and spiculated. This was fragmented with a 200 laser fiber. It was broken up into pieces and then removed with the 0 tip basket. There were no other stone fragments in the ureter up to the UPJ under direct visualization. The wire that was initially placed was then used to place a 6 x 26 cm ureteral stent using the cystoscope. This was done without difficulty and the proximal portion was seen to be in the renal pelvis and the distal portion the bladder. The wire was removed and the stent was seen to be in good position. The patient tolerated the procedure well. Findings: distal 4mm yellow spiculated stone in the distal ureter Discharge Disposition: PACU
[2016-07-25 14:37] VITALS: BP 156/82
--- NOTE | 2016-07-25 15:00 | NUR ---
1330 PATIENT MEDICATED POST OP WITH MORNING MEDS. CARDIZEM CD GIVEN ORDERED. BP NOTED TO BE 188/86, HR 58, OTHER VSS. INSURANCE PREMIUM AUDITOR AGUSTIN NOTIFIED OF BP. 1430 FOLLOW UP BP WAS 160/94, HR 64. INSURANCE PREMIUM AUDITOR AGUSTIN NOTIFIED.
[2016-07-25 22:56] VITALS: BP 129/68
[2016-07-26 07:20] VITALS: BP 145/67
--- NOTE | 2016-07-26 08:23 | PN- Housestaff ---
CASIE HUFFMAN 07/26/16 0823: Subjective Follow-up For: 1. Nephrolithiasis and ruptured left kidney fornix 2. Possible UTI and pyelonephritis with hematuria and CVA tenderness and chills 3. MARIAN, most likely post-renal 4. History of arrhythmia on cardizem Subjective: seen and examined patient. She is tolerating her diet. States she has not ambulated much since her hospitalization. She uses the bedside comode frequently as she is unable to control her bladder. Something that started more frequently this year. Review of Systems Constitutional: Denies: chills, diaphoresis, fever, malaise, weakness, unexplained weight loss. Cardiovascular: Denies: chest pain, edema, orthopena, palpitations, peripheral edema, syncope. Respiratory: Denies: cough, hemoptysis, orthopnea, short of breath, sputum production, stridor, wheezing. Objective Last 24 Hrs of Vital Signs/I&O Vital Signs Date Time Temp Pulse Resp B/P B/P Pulse O2 O2 Flow FiO2 Mean Ox Delivery Rate 07/27 719 98.0 62 20 145/67 96 Room Air 07/25 2256 98.1 70 20 129/68 95 Room Air 07/25 1437 98.6 61 20 156/82 92 Room Air 07/25 1128 58 188/76 05 1107 98.6 64 20 142/86 94 Room Air Intake & Output 07/26 1600 07/26 0800 05/ 0000 Intake Total 920 705 Output Total 300 Balance 620 705 Intake, IV 800 225 Intake, Oral 120 480 Output, Urine 300 Physical Exam General Appearance: Alert, Oriented X3, Cooperative, No Acute Distress Cardiovascular: Regular Rate, Normal S1, Normal S2 Lungs: Clear to Auscultation, Normal Air Movement Abdomen: Normal Bowel Sounds, Soft, tenderness to palpation of left side of abdomen Current Medications: Current Medications Sig/Tootie Start time Last Medication Dose Route Stop Time Status Admin Acetaminophen 650 MG .STK-MED ONE 07/25 2205 DC PO 07/25 2206 Acetaminophen 1,000 MG Q6P PRN 07/24 0245 AC 07/25 N/A 1 UNIT IV 0713 Acetaminophen 650 MG Q6P PRN 07/24 0100 AC 07/25 PO 220 Ciprofloxacin 400 MG Q12 07/24 1000 AC 07/25 Dextrose/Water 200 ML IV 2203 Cyanocobalamin 1,000 MCG DAILY 07/24 1000 AC 07/26 PO 0954 Diltiazem HCl 180 MG DAILY 07/24 1000 AC 07/26 PO 0954 Ketorolac 15 MG Q6 PRN 07/24 0245 AC 07/24 Tromethamine IV 0954 Magnesium Sulfate 1 GM ONCE ONE 07/25 0745 DC 07/25 Dextrose/Water 100 ML IV 07/25 1144 0800 Melatonin 5 MG ONCE ONE 07/25 2044 DC 07/25 PO 07/25 2045 220 Sodium Chloride 1,000 ML .[id number] 07/24 0045 AC 07/25 IV 2202 Tamsulosin HCl 0.4 MG DAILY 07/24 1000 AC 07/26 PO 0954 Last 24 Hrs of Lab/Aurelio Results Last 24 Hrs of Labs/Mics: Laboratory Tests 07/26/16 0610: Anion Gap 12, Estimated GFR > 60, BUN/Creatinine Ratio 21.3, Magnesium 1.6, CBC w Diff NO MAN DIFF REQ, RBC 3.80 L, MCV 92.7, MCH 30.8, RDW 13.4, MPV 11.4 H, Gran % 82.2 H, Lymphocytes % 8.9 L, Monocytes % 8.9, Eosinophils % 0, Basophils % 0 L, Absolute Granulocytes 9.9 H, Absolute Lymphocytes 1.1 L, Absolute Monocytes 1.1 H, Absolute Eosinophils 0, Absolute Basophils 0, PUBS MCHC 33.2 Assessment/Plan Assessment: 76 year-old lady woman PMH of arrhythmia, diverticulitis, kidney stones (15 years ago) who came to the ED after a day of severe left flank pain, nausea/ vomiting and loose stools, she also developed hematuria in the ED. S/p eft ureteroscopy with laser lithotripsy, stone extraction, and stent placement on 07/23/16. Admitted overnight to the ICU for closer monitoring, she remained hemodynamically stable and a repeat H/H also showed improvement therefore she was downgraded to GM 07/26/16 Problem list and plan: Remains afebrile and hemodynamically stable Continue IV ciprofloxacin Urology on board appreciate recommendation Continue home meds of Cardizem, Flomax Regular diet DVT prophylaxis with Alps Full code Problem List: 1. MARIAN (acute kidney injury) 2. Hydronephrosis 3. Pyelonephritis 4. Left ureteral injury Pain Ratin Pain Location: na Pain Goal: Pain 4 or less Pain Plan: current regimen Tomorrow's Labs & Rationales: MARGARITA Worrell MD 07/26/16 1744: Attending MD Review Statement Attending Statement Attending MD Statement: examined this patient, discuss w/resident/PA/EAR MACHINE OPERATOR, agreed w/resident/PA/EAR MACHINE OPERATOR, reviewed EMR data (avail) Attending Assessment/Plan: 76F PMH unclear arrhythmia on Cardizem, nephrolithiasis admitted for flank pain and hematuria, found to have nephrolithiasis and ruptured left kidney fornix, went to OR for left ureteroscopy with laser lithotripsy, stone extraction, and stent placement on 07/23/16. Chills and dysuria on admission, being treated with Cipro, cultures NGTD. Patient feels well today, hemodynamically stable, afebrile, labs unremarkable, MARIAN resolving. Plan - Continue on general medicine - Continue Cipro - Monitor renal function and Hgb level - Follow urology recommendations - Continue home medications - Possible discharge home tomorrow pending recommendations, signs of bleeding , and culture results
[2016-07-26 08:46] LABS: ABSOLUTE BASOPHIL COUNT 0 /CUMM (0.0-0.2); ABSOLUTE EOSINOPHIL COUNT 0 /CUMM (0.0-0.7); ABSOLUTE GRANULOCYTE CT 9.9 /CUMM (1.4-6.5); ABSOLUTE LYMPH COUNT 1.1 /CUMM (1.2-3.4); ABSOLUTE MONOCYTE COUNT 1.1 /CUMM (0.10-0.60); BASOPHIL % 0 % (0.0-2.0); EOSINOPHIL % 0 % (0-5); GRANULOCYTE % 82.2 % (42.2-75.2); HEMATOCRIT 35.2 % (37-47); MEAN CORPUSCULAR HGB 30.8 PG (27.0-31.0); MEAN CORPUSCULAR HGB CONC 33.2 G/DL (33.0-37.0); MEAN CORPUSCULAR VOLUME 92.7 FL (81.0-99.0); MEAN PLATELET VOLUME 11.4 FL (7.4-10.4); PLATELET COUNT 189 /CUMM (130-400); RBC DISTRIBUTION WIDTH 13.4 % (11.5-14.5); WHITE BLOOD CELL COUNT 12.1 /CUMM (4.8-10.8)
[2016-07-26 15:28] VITALS: BP 122/62
[2016-07-26 22:57] VITALS: BP 120/72
[2016-07-27 06:53] VITALS: BP 161/56
[2016-07-27 07:53] LABS: ABSOLUTE BASOPHIL COUNT 0 /CUMM (0.0-0.2); ABSOLUTE EOSINOPHIL COUNT 0.1 /CUMM (0.0-0.7); ABSOLUTE GRANULOCYTE CT 7.7 /CUMM (1.4-6.5); ABSOLUTE MONOCYTE COUNT 1.1 /CUMM (0.10-0.60); BASOPHIL % 0.3 % (0.0-2.0); EOSINOPHIL % 0.5 % (0-5); GRANULOCYTE % 64.9 % (42.2-75.2); HEMATOCRIT 36.5 % (37-47); MEAN CORPUSCULAR HGB 30.6 PG (27.0-31.0); MEAN CORPUSCULAR HGB CONC 33.1 G/DL (33.0-37.0); MEAN CORPUSCULAR VOLUME 92.4 FL (81.0-99.0); MEAN PLATELET VOLUME 11.2 FL (7.4-10.4); PLATELET COUNT 200 /CUMM (130-400); RBC DISTRIBUTION WIDTH 13.6 % (11.5-14.5); RED BLOOD CELL CT 3.95 /CUMM (4.20-5.40); WHITE BLOOD CELL COUNT 11.9 /CUMM (4.8-10.8)
[2016-07-27] MEDS ORDERED: CIPRO500 M1 PO (13:32)
--- NOTE | 2016-07-27 13:33 | PN- Att Addend ---
Attending Addendum Attending Brief Note 76F PMH unclear arrhythmia on Cardizem, nephrolithiasis admitted for flank pain and hematuria, found to have nephrolithiasis and ruptured left kidney fornix, went to OR for left ureteroscopy with laser lithotripsy, stone extraction, and stent placement on 07/23/16. Chills and dysuria on admission, being treated with Cipro, cultures NGTD. Patient feels well today, hemodynamically stable, afebrile, labs unremarkable, MARIAN resolved. 13-point review of systems negative AFVSS NAD NCAT Supple RRR CTAB Soft, NTND No c/c/e Pulses intact A&Ox3 no focal deficits Current Medications Sig/Tootie Start time Last Medication Dose Route Stop Time Status Admin Acetaminophen 1,000 MG Q6P PRN 07/24 0245 AC 07/25 N/A 1 UNIT IV 0713 Acetaminophen 650 MG Q6P PRN 07/24 0100 AC 07/25 PO 2206 Ciprofloxacin 400 MG Q12 07/24 1000 AC 07/27 Dextrose/Water 200 ML IV 1017 Cyanocobalamin 1,000 MCG DAILY 07/24 1000 AC 07/27 PO 1017 Diltiazem HCl 180 MG DAILY 07/24 1000 AC 07/27 PO 1017 Docusate Sodium 100 MG DAILY NEEDED PRN 07/26 1945 AC 07/26 PO 2155 Ketorolac 15 MG Q6 PRN 07/24 0245 AC 07/24 Tromethamine IV 0954 Melatonin 5 MG AT BEDTIME 07/26 2200 AC / PO 2155 Senna 187 MG AT BEDTIME PRN / 1945 AC 07/26 PO 2155 Sodium Chloride 1,000 ML .[id number] 07/24 0045 AC 07/27 IV 1018 Tamsulosin HCl 0.4 MG DAILY 07/24 1000 AC 07/27 PO 1017 Laboratory Tests 07/27 0648 Chemistry Sodium (137 - 145 mmol/L) 142 Potassium (3.5 - 5.1 mmol/L) 4.0 Chloride (98 - 107 mmol/L) 106 Carbon Dioxide (22 - 30 mmol/L) 26 Anion Gap (5 - 16) 10 BUN (7 - 17 mg/dL) 18 H Creatinine (0.5 - 1.0 mg/dL) 0.9 Estimated GFR (>60 ml/min) > 60 BUN/Creatinine Ratio (7 - 25 %) 20.0 Hematology CBC w Diff NO MAN DIFF REQ WBC (4.8 - 10.8 /CUMM) 11.9 H RBC (4.20 - 5.40 /CUMM) 3.95 L Hgb (12.0 - 16.0 G/DL) 12.1 Hct (37 - 47 %) 36.5 L MCV (81.0 - 99.0 FL) 92.4 MCH (27.0 - 31.0 PG) 30.6 RDW (11.5 - 14.5 %) 13.6 Plt Count (130 - 400 /CUMM) 200 MPV (7.4 - 10.4 FL) 11.2 H Gran % (42.2 - 75.2 %) 64.9 Lymphocytes % (20.5 - 51.1 %) 25.2 Monocytes % (1.7 - 9.3 %) 9.1 Eosinophils % (0 - 5 %) 0.5 Basophils % (0.0 - 2.0 %) 0.3 Absolute Granulocytes (1.4 - 6.5 /CUMM) 7.7 H Absolute Lymphocytes (1.2 - 3.4 /CUMM) 3.0 Absolute Monocytes (0.10 - 0.60 /CUMM) 1.1 H Absolute Eosinophils (0.0 - 0.7 /CUMM) 0.1 Absolute Basophils (0.0 - 0.2 /CUMM) 0 PUBS MCHC (33.0 - 37.0 G/DL) 33.1 Hgb and renal function stable. Plan - Stable for discharge home - Continue Cipro to complete 14 day course - Outpatient urology follow up - Continue home medications
--- NOTE | 2016-07-27 13:36 | Patient Discharge Instructions ---
Discharge Instructions General Discharge Information You were seen/treated for: Pyelonephritis You had these procedures: Stone extraction with stent placement Watch for these problems: fever worsening pain increasing blood in urine Special Instructions: Follow up with Dr. Thompson in one week after d/c Follow up with PCP Finish your antibiotics DO NOT take calcium or other multitamin WITH your ciprofloxacin. Take them separately. Diet Continue normal diet: Yes Activity Activity Self Limited: Yes Acute Coronary Syndrome Inclusion Criteria At DC or during hospital stay patient has or had the following: ACS DIAGNOSIS No Discharge Core Measures Meds if any: Prescribed or Continued at Discharge Meds if any: NOT Prescribed or Continued at Discharge Congestive Heart Failure Inclusion Criteria At DC or during hospital stay patient has or had the following: CHF DIAGNOSIS No Discharge Core Measures Meds if any: Prescribed or Continued at Discharge Meds if any: NOT Prescribed or Continued at Discharge Cerebrovascular accident Inclusion Criteria At DC or during hospital stay patient has or had the following: CVA/TIA Diagnosis No Discharge Core Measures Meds if any: Prescribed or Continued at Discharge Meds if any: NOT Prescribed or Continued at Discharge Venous thromboembolism Inclusion Criteria VTE Diagnosis No VTE Type NONE VTE Confirmed by (Test) NONE Discharge Core Measures - Per Current guidelines, there needs to be overlap - treatment for the first 5 days of Warfarin therapy. - If discharged on Warfarin prior to 5 days of - overlap therapy, the patient will need to be - assessed for post discharge needs including - *Post discharge parental anticoagulation - *Warfarin and/or parental anticoagulation education - *Follow up date to check INR post discharge At least 5 days overlap therapy as Inpatient No Meds if any: Prescribed or Continued at Discharge Note: Overlap Therapy is Warfarin and Anticoagulant Meds if any: NOT Prescribed or Continued at Discharge
[2016-07-27 14:05] VITALS: BP 120/80
--- NOTE | 2016-07-27 17:19 | NUR ---
NURSING NOTE; AT THIS TIME PT HAS STILL NOT MOVED HER BOWELS, EMBALMER APPRENTICE #[id number] CALLED AND NOTIFIED, ANOTHER SUPPOSITORY ORDERED WELL MIRALAX, PER EMBALMER APPRENTICE PT DOES NOT NEED TO MOVE HER BOWELS BEFORE DISCHARGE, WILL CONTINUE TO MONITOR.
--- NOTE | 2016-07-27 18:34 | NUR ---
AT THIS TIME; PT STABLE FOR DC PER MD, PT MOVED HER BOWELS TODAY, IV DC BY THIS RN, DC INSTRUCTIONS EXPLAINED, PT HAS NO COMPLAINTS, VERBALIZED UNDERTSANDING OF DC INSTRUCTIONS, WILL CONT TO MONITOR
--- NOTE | 2016-07-27 21:03 | Discharge Summary ---
Visit Information Visit Dates Admission Date: 07/23/16 Discharge Date: 07/27/16 Hospital Course Course Attending Physician: MARGARITA WEN MD Primary Care Physician: SHENA URIBE Consulting Request: 1 Consulting Specialty: Critical Care Consulting Request: 2 Consulting Specialty: Urology Hospital Course: 76 year old woman with past medical history of arrhythmia, diverticulosis, and kidney stones seen for evaluation of left flank pain. Patient was in her normal state of health until the afternoon prior to evaluation and was described as sudden onset, constant, 9/10 located on the left side of her abdomen with radiation to the suprapubic area and associated with non blood bilious vomit and multiple episodes of loose stool. She denied any fever, chills, or urinary symptoms at this time. The day prior she noted bladder pressure with urinary hesitancy and increased frequency with associated bladder pressure. Patient was brought in by ambulance to the [place] ED for further evaluation when she noticed her urine became dark. ED Course -Vitals: Temp 96.4-98.2, HR 58-76, RR 16-20, BP 135-182/60-90, O2 96-99% on Room Air -Significant Labs: WBC 20, H&H 14.7/44.1, platelet 269, sodium 140, potassium 4.1, BUN/creatinine 18/1, chloride 102, bicarbonate 26, GFR 54, lactic acid 1.4, AST 44, ALT 64, alkaline phosphatase within normal, trops<0.01, lipase & amylase WNL, UA positive nitrate, back RBC and hemoglobin. -Studies: CT abd/pelvis - left retroperitoneal hematoma anteriot to the left UPJ , CTA abd/pelvis - left hematoma with 4mm stone in left ureter at UPJ junction and mild left hydronephrosis and left-sided perinephric stranding Left Retroperitoneal Hematoma / Pyelonephritis / Hydronephrosis Patient with history of renal stones seen for evaluation of acute onset left flank pain and associated urinary symtoms. Vitals demosntrated hypertesnion but were otherwise normal. Labs demonstrated leukocytosis, normal renal/liver function. CT imaging demonstrated findings of a hematoma possible secondary to a perforated ureter due do a stone at the left UPJ. Patient was admitted to the intensive care unit. She was continued on intravenous fluids and Ciprofloxacin, urology and critcal care consults were placed. Case was discussed with urologist Dr. Thompson whom felt the patient should be observed for 24 hours to see if the stone passes, she recommened to start the patient on Flomax. Hemoglobin was observed to drop but remained stable and did not require any transfusion. Patient failed to spontaneously pass the stone for which she was kept NPO overnight and taken to the OR for a left ureteroscopy with laser lithotripsy and stend placement. She was transferred to the general medicine floor after the procedure for further evaluation. Patient tolerated the procedure well and her pain was undercontrol. She was discharged to home with oral antibiotics and instruction to follow up with Dr. Thompson and her PCP within one week of discharge. Allergies: Coded Allergies: cephalexin (From KEFLEX) (UNKNOWN 07/24/16) codeine (UNKNOWN 07/24/16) latex (UNKNOWN 07/24/16) Significant Procedures: SERVICE DATE: 07/23/16 EXAM TYPE: CAT - CT ABD & PELVIS W/O IV CONTRAS IMPRESSION: - There is retroperitoneal hematoma on the left side that is centered just anterior to the left ureteropelvic junction and proximal left ureter which are inseparable from hematoma. In speaking with the referring clinician, the patient does have an elevated white count and left flank pain. Possible etiology for these blood products could be ureteral injury or calyceal rupture in the setting of prior obstruction with no radiopaque calculus identified as the source of obstruction on this exam. Alternatively ureteral or calyceal injury from underlying pyelonephritis could explain these findings. If renal function tests allow, a CT urogram excluding the noncontrast portion and CTA of the abdomen would be helpful in assessing the renal collecting system more definitively and for ensuring that there is no renal artery aneurysm to explain these findings. - There is mild dilatation of the left renal collecting system and there is a 4 mm calculus within the lateral interpolar left kidney. There are parapelvic cysts on the right side. - Diffuse hepatic steatosis. SERVICE DATE: 07/23/16 EXAM TYPE: CAT - CT ABD & PELVIS ANGIOGRAM IMPRESSION: 1. Small volume retroperitoneal hematoma along the course of the proximal left ureter. This is favored to be secondary to an underlying left ureteral injury given the presence of a 4 mm stone at the left ureterovesicular junction. Hematoma along the proximal left ureter measures approximately 2.2 x 2.8 x 3.0 cm in AP, transverse and craniocaudal dimensions respectively. There is minimal left-sided perinephric stranding. 2. Mild prominence of the left renal collecting system, indicative of mild hydronephrosis of the left kidney. There is hypoenhancement of the left kidney relative to the right kidney. This finding is nonspecific but may be secondary to underlying obstruction of the left kidney. 3. No aneurysmal dilatation of the abdominal aorta or its branching vessels, including the left renal artery. 4. Hepatic steatosis. SERVICE DATE: 07/25/16- EXAM TYPE: RAD - [id number] VIEW IMPRESSION: Left-sided ureteroscopy and stent placement. Full procedural details will be dictated by Dr. Thompson. Disposition Summary Disposition Principal Diagnosis: Nephrolithiasis with ureter injury Additional Diagnosis: Retroperitoneal Hematoma Discharge Disposition: home health services Discharge Instructions General Discharge Information Code Status: Full Code Patient's Diet: Regular Diet Patient's Activity: Return to full activity as tolerated Follow-Up Instructions/Appts: Follow up with Dr. Thompson in one week after d/c Follow up with PCP Finish your antibiotics DO NOT take calcium or other multitamin WITH your ciprofloxacin. Take them separately. Medications at Discharge Discharge Medications: Continue taking these medications: Diltiazem HCl (Diltiazem 24HR ER) 180 MG CAP.ER.24H 1 Capsule ORAL DAILY Qty = 90 Comments: Last Taken: 07/27/16 Time: 10:00 AM Cyanocobalamin (Vitamin B-12) (Unknown Strength) TABLET Unknown Dose ORAL DAILY Comments: Last Taken: 07/27/16 Time: 10:00 AM Pyridoxine HCl (Vitamin B-6) (Unknown Strength) TABLET Unknown Dose ORAL DAILY Comments: NOT GIVEN IN HOSPITAL Vit C/Vit E/Lutein/Min/Alvin-3 (Ocuvite Softgel) (Unknown Strength) CAPSULE Unknown Dose ORAL DAILY Comments: NOT GIVEN IN HOSPITAL Start taking the following new medications: Ciprofloxacin HCl (Cipro) 500 MG TABLET 1 Tablet ORAL TWICE DAILY Days = 10 No Refills Copies To: SHAHLA PERLA,SHENA Gallego; ZARA WU,SAHARA
== END 2016-07-27 18:36 | disposition home health service (06) | DRG 668 ==
LOC: ERH 19:16 → ERHI 23:26 → 2NB 23:26 → CRI 23:26 → ERH 23:26 → CANRESERV 07-24 00:16 → ENRESERV 07-24 00:16 → CANBEDREQ 07-24 01:16 → ERHI 07-24 01:30 → ENRESERV 07-24 01:36 → CRI 07-24 02:32 → 2NB 07-25 10:48
PROVIDERS: Internal Medicine; Ophthalmology; Physician Assistant Medical; Student in an Organized Health Care Education/Training Program; ADMIT Internal Medicine
PROC: 0TC78ZZ Extirpation of Matter from Left Ureter, Via Natural or Artificial Opening Endoscopic (ICD-10-PCS; principal; 2016-07-23)
PROC: 0T778DZ Dilation of Left Ureter with Intraluminal Device, Via Natural or Artificial Opening Endoscopic (ICD-10-PCS; principal; 2016-07-23)
DX: N13.2 Hydronephrosis with renal and ureteral calculous obstruction (principal); K66.1 Hemoperitoneum; I48.91 Unspecified atrial fibrillation; K76.0 Fatty (change of) liver, not elsewhere classified
CPT/HCPCS: 2NBSP; CCU; ERO; 36415; 74000; 74174; 74176; 81001; 82355; 82436; 87040; 87086; 93005; 93010; 96374; 96375; C2617; J0131; J0744; J1885; J2405; J7060

== ENCOUNTER 2016-07-31 19:04 | Emergency (ER) | payer OTHER, MEDICARE ==
[~2016-07-31] VITALS: Ht 170.2 cm; Wt 68.0 kg
[~2016-07-31 19:04] MED LIST: CIPRO500 M1 PO; DILTIAZEM 24HR180 MG PO; OCUVITE SOFTGE1 EACH PO; VITAMIN B-121000 MC3 PO; VITAMIN B-650 M2 PO
--- NOTE | 2016-07-31 19:19 | ED GI/GU/ABDOMINAL COMPLAINT ---
History of Present Illness General Chief Complaint: Low Back Pain/Injury Stated Complaint: BIBA BACK PAIN Source: patient Exam Limitations: no limitations Vital Signs & Intake/Output Vital Signs & Intake/Output Vital Signs Date Time Temp Pulse Resp B/P B/P Pulse O2 O2 Flow FiO2 Mean Ox Delivery Rate 08/01 2211 97.1 72 18 143/76 97 Room Air 08/01 1939 97.8 76 18 154/73 98 Room Air Allergies Coded Allergies: cephalexin (From KEFLEX) (UNKNOWN 07/24/16) codeine (UNKNOWN 07/24/16) latex (UNKNOWN 07/24/16) Reconcile Medications Ciprofloxacin HCl (Cipro) 500 MG TABLET 1 TAB PO BID Pyelonephritis Cyanocobalamin (Vitamin B-12) (Unknown Strength) TABLET (Unknown Dose) PO DAILY SUPPLEMENT (Reported) Diltiazem HCl (Diltiazem 24HR ER) 180 MG CAP.ER.24H 1 CAP PO DAILY ARRYTHMIA (Reported) Oxycodone HCl/Acetaminophen (Percocet 5-325 MG Tablet) 5 MG-325 MG TABLET 1-2 TAB PO Q8P PRN pain Pyridoxine HCl (Vitamin B-6) (Unknown Strength) TABLET (Unknown Dose) PO DAILY SUPPLEMENT (Reported) Vit C/Vit E/Lutein/Min/[place]-3 (Ocuvite Softgel) (Unknown Strength) CAPSULE ( Unknown Dose) PO DAILY SUPPLEMENT (Reported) Triage Note: PT BIBA FROM HOME C/O 09/29 MID BACK AND LEFT LEG PAIN. PT HAD KIDNEY STONE EXTRACTION HERE ON THURSDAY AND WAS D/C THURSDAY. PT STATES "IF MY PCP JUST GAVE ME A PILL FOR THE PAIN I WOULD NOT HAVE TO BE HERE." Triage Nurses Notes Reviewed? yes ? n Is pt currently ? No Onset: Abrupt Duration: day(s):, constant, continues in ED Timing: recent history Quality/Severity: moderate Location: left flank Radiation: no radiation No Modifying Factors: none HPI: 76-year-old female comes into emergency room with complaints of left flank pain wrapping around reading to left side of her abdomen. Symptoms been going on for past few days. Patient reports that she had a stent placed this past weekend from a obstructing stone. Patient reports that she was discharge of the day but was not given pain medication. She called her doctor told her to come to the ER for pain medication. Patient had an episode of vomiting earlier today. Denies any fever chills. Denies any other associated symptoms. (MIGUEL TURNER) Past History Travel History Traveled to [place] past 21 day No Medical History Any Pertinent Medical History? see below for history Neurological: NONE EENT: NONE Cardiovascular: ARRHYTHMIA Respiratory: NONE Gastrointestinal: diverticulitis Hepatic: NONE Renal: KIDNEY STONES Musculoskeletal: NONE Psychiatric: NONE Endocrine: NONE Blood Disorders: NONE Cancer(s): NONE FARM FACILITY MANAGER/Reproductive: NONE History of MRSA: No History of VRE: No History of CDIFF: No Surgical History Surgical History: hysterectomy Psychosocial History Who do you live with Sister Services at Home None What is your primary language Pashto Tobacco Use: Never used ETOH Use: denies use Family History Hx Contributory? No (MIGUEL TURNER) Review of Systems Review of Systems Constitutional: Reports: no symptoms. EENTM: Reports: no symptoms. Respiratory: Reports: no symptoms. Cardiovascular: Reports: no symptoms. GI: Reports: no symptoms. Genitourinary: Reports: no symptoms. Musculoskeletal: Reports: see HPI. Skin: Reports: no symptoms. Neurological/Psychological: Reports: no symptoms. Hematologic/Endocrine: Reports: no symptoms. Immunologic/Allergic: Reports: no symptoms. All Other Systems: Reviewed and Negative (MIGUEL TURNER) Physical Exam Physical Exam General Appearance: well developed/nourished, alert, awake Head: atraumatic, normal appearance Eyes: Bilateral: normal appearance. Ears, Nose, Throat, Mouth: hearing grossly normal, moist mucous membrane Neck: normal inspection, full range of motion Respiratory: normal breath sounds, no respiratory distress Cardiovascular: regular rate/rhythm Gastrointestinal: soft, tenderness Back: CVA tenderness (L) Extremities: normal range of motion Neurologic/Psych: awake, alert, oriented x 3, normal gait, normal mood/affect Skin: intact, normal color Core Measures ACS in differential dx? No Severe Sepsis Present: No Septic Shock Present: No (MIGUEL TURNER) Progress Differential Diagnosis: AMI, appendicitis, biliary colic, bowel obstruction, endometritis, gastritis, hepatitis, ischemic bowel, inflamm bowel dis, kidney stone, ovarian cyst, ovarian torsion, pancreatitis, PID/cervicitis, peptic ulcer , PUD/GERD, perforated viscous, SBO, threatened AB, UTI/pyelo Plan of Care: Orders Procedure Date/time Status Add-on Test (ER Only) 07/31 2144 Active CULTURE,URINE 08/01 2119 Active URINALYSIS 07/31 1918 Complete COMPREHENSIVE METABOLIC PANEL 07/31 1918 Complete CBC WITHOUT DIFFERENTIAL 07/31 1918 Complete Laboratory Tests 07/31/162119: Urinalysis LIGHT H, Urine Color YEL, Urine Clarity CLEAR, Urine pH 6.0, Ur Specific [place] >= 1.030, Urine Protein 30 H, Urine Ketones NEG, Urine Nitrite NEG, Urine Bilirubin NEG, Urine Urobilinogen 0.2, Ur Leukocyte Esterase TRACE H , Ur Microscopic SEDIMENT EXAMINED, Urine RBC 25-50 H, Urine WBC 10-15 H, Ur Epithelial Cells FEW, Urine Bacteria FEW H, Urine Mucus MOD H, Urine Hemoglobin MOD H, Urine Glucose 500 H 07/31/161937: Anion Gap 12, Estimated GFR > 60, BUN/Creatinine Ratio 23.3, Glucose 244 H, Calcium 9.2, Total Bilirubin 0.6, AST 35, ALT 81 H, Alkaline Phosphatase 93, Total Protein 7.2, Albumin 4.3, Globulin 2.9, Albumin/Globulin Ratio 1.5, CBC w Diff MAN DIFF ORDERED, RBC 4.47, MCV 93.0, MCH 30.7, RDW 13.3, MPV 10.2, Gran % 83.7 H, Lymphocytes % 8.8 L, Monocytes % 6.7, Eosinophils % 0.5, Basophils % 0.3, Absolute Granulocytes 14.6 H, Absolute Lymphocytes 1.5, Absolute Monocytes 1.2 H, Absolute Eosinophils 0.1, Absolute Basophils 0.1, Platelet Estimate ADEQUATE, Normochromic RBCs VERIFIED, Poikilocytosis 2+, Stomatocytes 2+, PUBS MCHC 33.0 Microbiology 08/01 2119 URINE ROUT: Urine Culture - RECD Diagnostic Imaging: Viewed by Me: CT Scan. Discussed w/RAD: CT Scan. Radiology Impression: SERVICE DATE: 07/31/16-1918 EXAM TYPE: CAT - CT ABD & PELVIS W/O IV CONTRAS EXAMINATION: CT ABDOMEN AND PELVIS WITHOUT CONTRAST CLINICAL INFORMATION: Left flank pain. Evaluate for an increasing left flank hematoma. COMPARISON: Multiple priors, most recent CT abdomen and pelvis dated 07/23/2016. TECHNIQUE: Multidetector volumetric imaging was performed from the superior aspect of the liver through the pubic symphysis. Sagittal and coronal reformatted images were obtained on the technologist's workstation. DLP: 372.60 mGy-cm. FINDINGS: LUNG BASES: There is mild bibasilar atelectasis. LIVER, GALLBLADDER, AND BILIARY TREE: The liver is normal in size and shape. There is mild hypoattenuation of the liver, consistent with fatty infiltration. No focal hepatic lesion or biliary ductal dilatation is present. The gallbladder is contracted with no evidence of radiopaque gallstones, gallbladder wall thickening, or obvious pericholecystic inflammatory changes. PANCREAS: Unremarkable. SPLEEN: Unremarkable. ADRENAL GLANDS: Unremarkable. KIDNEYS AND URETERS: There is mild left hydroureter and hydronephrosis, not significantly changed since the prior examination. A 5 mm nonobstructing stone is redemonstrated within the midpole of the left kidney. The previously seen left UVJ stone is no longer identified. There is mild left perinephric and periureteral stranding, decreased since the prior examination. There is no adjacent fluid collection. The right kidney is unremarkable without evidence of hydronephrosis or nephrolithiasis. BLADDER: There is a small air-fluid level within the bladder, which could be secondary to recent instrumentation. Clinical correlation is recommended. GASTROINTESTINAL TRACT: No large or small bowel obstruction. Sigmoid colon diverticulosis without adjacent inflammation to suggest acute diverticulitis. The appendix is not identified, however there is no right lower quadrant inflammatory change. No intra-abdominal free air or free fluid. ABDOMINAL WALL: No significant hernia is appreciated. LYMPH NODES: No significant lymphadenopathy, although evaluation is limited on this noncontrast examination. VASCULAR: The abdominal aorta is nondilated. A few scattered atherosclerotic calcifications are seen within the abdominal aorta. The IVC is unremarkable. PELVIC VISCERA: Unremarkable. OSSEOUS STRUCTURES: No lytic or blastic osseous lesion. Unchanged mild degenerative changes within the visualized lower thoracic and lumbar spine. IMPRESSION: 1. Mild left hydroureter and hydronephrosis with mild adjacent fat stranding which has decreased in prominence since the prior examination. No organized intra-abdominal fluid collection. Stable nonobstructing left midpole renal stone. The previously seen left UVJ stone is no longer identified. No right-sided hydronephrosis or nephrolithiasis. 2. Fatty infiltration of the liver. 3. No large or small bowel obstruction. Sigmoid diverticulosis. No intra-abdominal free air or free fluid. DICTATED BY: AMANDEEP GUTIÉRREZ MD DATE/TIME DICTATED:07/31/162044 GOLD CUTTER:JUDITH DATE/TIME TRANSCRIBED:07/31/162044 CONFIDENTIAL, DO NOT COPY WITHOUT APPROPRIATE AUTHORIZATION. Initial ED EKG: none (RASHIDA STEPHENS,MIGUEL) Departure Departure Disposition: HOME OR SELF CARE Condition: Stable Clinical Impression Primary Impression: Flank pain Secondary Impressions: Kidney stone Referrals: SHAHLA PERLA,SHENA Gallego (PCP/Family) Additional Instructions: Take Percocet for pain. Follow-up with urologist tomorrow. Return if any concerns worsening symptoms. Please go over all results of today's visit with your primary care doctor. Contact your primary care doctor to let them know you were here in the emergency room. There may be nonspecific findings which may not be related to your visit today here in the emergency room but may require further evaluation and chronic monitoring by your primary care doctor. If you had a laceration today the chance of foreign body always remains. You should follow-up with your primary care doctor for recheck in 3-5 days for a wound check. If you had an x-ray done there is a chance that a fracture could have been missed on initial read and you should follow-up with your primary care doctor for repeat x-rays if symptoms persist. If your blood pressure was elevated here in the emergency room please have rechecked by her primary care doctor within the next 48 hours by your primary care doctor. If you were prescribed a narcotic here in the emergency room or any type of controlled substances you're not allowed to drive while taking this medication or operate any type of heavy machinery. Narcotics can make you feel lightheaded dizziness nausea and can cause constipation. You may need to pick remover a stool softener. Thank you for choosing [facility] emergency room. Please return to the emergency room immediately if you have any other concerns worsening of symptoms. Departure Forms: Customer Survey General Discharge Information Prescriptions: Current Visit Scripts Oxycodone HCl/Acetaminophen (Percocet 5-325 MG Tablet) 1-2 TAB PO Q8P PRN pain #15 TAB Comments Findings are stable. Patient clinically looks well. Patient came in primarily for pain control. Increasing white count blood patient is currently on oral antibiotics. Urine culture sent off. Patient able to tolerate Percocet with no reaction and relief of pain here in the emergency room. Patient told to contact her urologist tomorrow. Return if any other concerns. CT scan shows improving hydro-on the left side. Patient was reevaluated multiple times and understands and agrees with plan of care. Case discussed with dr cook. (MIGUEL TURNER) PA/MINE GEOLOGIST Co-Sign Statement Statement: ED Attending supervision documentation- x I saw and evaluated the patient. I have also reviewed all the pertinent lab results and diagnostic results. I agree with the findings and the plan of care as documented in the PA's/MINE GEOLOGIST's documentation. [] I have reviewed the ED Record and agree with the PA's/MINE GEOLOGIST's documentation. [] Additions or exceptions (if any) to the PAs/MINE GEOLOGIST's note and plan are summarized below: [] (KASSI WU,KELL)
[2016-07-31 19:53] LABS: ABSOLUTE BASOPHIL COUNT 0.1 /CUMM (0.0-0.2); ABSOLUTE EOSINOPHIL COUNT 0.1 /CUMM (0.0-0.7); ABSOLUTE GRANULOCYTE CT 14.6 /CUMM (1.4-6.5); ABSOLUTE LYMPH COUNT 1.5 /CUMM (1.2-3.4); ABSOLUTE MONOCYTE COUNT 1.2 /CUMM (0.10-0.60); BASOPHIL % 0.3 % (0.0-2.0); EOSINOPHIL % 0.5 % (0-5); GRANULOCYTE % 83.7 % (42.2-75.2); MEAN CORPUSCULAR HGB 30.7 PG (27.0-31.0); MEAN PLATELET VOLUME 10.2 FL (7.4-10.4); PLATELET COUNT 290 /CUMM (130-400); RBC DISTRIBUTION WIDTH 13.3 % (11.5-14.5); RED BLOOD CELL CT 4.47 /CUMM (4.20-5.40); WHITE BLOOD CELL COUNT 17.5 /CUMM (4.8-10.8)
[2016-07-31 20:03] LABS: HEMATOCRIT 41.5 % (37-47)
--- NOTE | 2016-07-31 21:12 | CT SCAN REPORT ---
EXAMINATION: CT ABDOMEN AND PELVIS WITHOUT CONTRAST CLINICAL INFORMATION: Left flank pain. Evaluate for an increasing left flank hematoma. COMPARISON: Multiple priors, most recent CT abdomen and pelvis dated 07/23/2016. TECHNIQUE: Multidetector volumetric imaging was performed from the superior aspect of the liver through the pubic symphysis. Sagittal and coronal reformatted images were obtained on the technologist's workstation. DLP: 372.60 mGy-cm. FINDINGS: LUNG BASES: There is mild bibasilar atelectasis. LIVER, GALLBLADDER, AND BILIARY TREE: The liver is normal in size and shape. There is mild hypoattenuation of the liver, consistent with fatty infiltration. No focal hepatic lesion or biliary ductal dilatation is present. The gallbladder is contracted with no evidence of radiopaque gallstones, gallbladder wall thickening, or obvious pericholecystic inflammatory changes. PANCREAS: Unremarkable. SPLEEN: Unremarkable. ADRENAL GLANDS: Unremarkable. KIDNEYS AND URETERS: There is mild left hydroureter and hydronephrosis, not significantly changed since the prior examination. A 5 mm nonobstructing stone is redemonstrated within the midpole of the left kidney. The previously seen left UVJ stone is no longer identified. There is mild left perinephric and periureteral stranding, decreased since the prior examination. There is no adjacent fluid collection. The right kidney is unremarkable without evidence of hydronephrosis or nephrolithiasis. BLADDER: There is a small air-fluid level within the bladder, which could be secondary to recent instrumentation. Clinical correlation is recommended. GASTROINTESTINAL TRACT: No large or small bowel obstruction. Sigmoid colon diverticulosis without adjacent inflammation to suggest acute diverticulitis. The appendix is not identified, however there is no right lower quadrant inflammatory change. No intra-abdominal free air or free fluid. ABDOMINAL WALL: No significant hernia is appreciated. LYMPH NODES: No significant lymphadenopathy, although evaluation is limited on this noncontrast examination. VASCULAR: The abdominal aorta is nondilated. A few scattered atherosclerotic calcifications are seen within the abdominal aorta. The IVC is unremarkable. PELVIC VISCERA: Unremarkable. OSSEOUS STRUCTURES: No lytic or blastic osseous lesion. Unchanged mild degenerative changes within the visualized lower thoracic and lumbar spine. IMPRESSION: 1. Mild left hydroureter and hydronephrosis with mild adjacent fat stranding which has decreased in prominence since the prior examination. No organized intra-abdominal fluid collection. Stable nonobstructing left midpole renal stone. The previously seen left UVJ stone is no longer identified. No right-sided hydronephrosis or nephrolithiasis. 2. Fatty infiltration of the liver. 3. No large or small bowel obstruction. Sigmoid diverticulosis. No intra-abdominal free air or free fluid.
[2016-07-31 22:12] VITALS: BP 143/76
[2016-07-31] MEDS ORDERED: PERCOCET 5-3251 EACH PO (22:41)
== END 2016-07-31 22:47 ==
LOC: ERH 19:04
PROVIDERS: Physician Assistant Medical
DX: N20.0 Calculus of kidney (principal)
CPT/HCPCS: 74176; 81001; 87086

== ENCOUNTER → 2017-12-07 | Day surgery (SDC) | payer OTHER ==
[~2017-12-07] VITALS: Ht 165.1 cm; Wt 72.6 kg
[~2017-12-07] MED LIST changes: +PERCOCET 5-3251 EACH PO
--- NOTE | 2017-12-07 08:22 | Operative Report ---
Operative/Inv Procedure Report Surgery Date: 12/07/17 Name of Procedure: left ESWL Pre-Operative Diagnosis: left 4mm stone Post-Operative Diagnosis: same Estimated Blood Loss: scant Surgeon/Absorption Plant Operator: Yolette Thompson MD Anesthesia: local monitored anesthesi Complications: none Condition: stable Operative Indication: left renal stone Operative/Procedure Note Note: 76yo female with an obstructing distal left ureteral stone with ruptured fornix that was treated as an inpt with laser lithotripsy and stent placement. Then she had a 5mm left kidney stone that was causing her discomfort s/p ESWL. She has been having left flank pain that is radiating down to her LLQ. She has had no N/ V/F/C or hematuria. She had a renal US in 07/08 that showed a left 4mm lower pole stone and over the weekend she had a KUB which did reveal not any radioopaque stones. She is here today for ESWL. She understands the risks, benefits and alternatives. All questions were answered and consent was signed after her left hand was marked. Patient was brought to the operating room and placed on the table in the supine position. Timeo out was performed. IV cipro was started. ESWL was started after IV sedation was given adequately and the 4mm stone was located in the midpole. The shockwaves were started at a power of 10 for 100 shocks, then power of 11 for 100 shocks, then power of 12 for 100 shocks, then power of 13 for 100 shocks and finally power of 20 for 2100 shocks. Patient tolerated the procedure well. THe stone was visibly changed at the end of the procedure. Patient was transferred to [facility] in stable condition.
== END ==
LOC: STS 02:09
DX: N20.0 Calculus of kidney (principal); Z87.442 Personal history of urinary calculi; E11.9 Type 2 diabetes mellitus without complications; Z79.84 Long term (current) use of oral hypoglycemic drugs; E03.9 Hypothyroidism, unspecified; I10 Essential (primary) hypertension; I34.1 Nonrheumatic mitral (valve) prolapse
CPT/HCPCS: J0744; J7060